=== PATIENT | female | born 1935 | race African-American/Black ===

== ENCOUNTER 2016-08-14 19:17 | Inpatient (IN) | payer MEDICARE, BC ==
[2016-08-14 21:04] LABS: ABSOLUTE BASOPHILS # (AUTO) 0.1 10^3/uL (0.0-0.2); ABSOLUTE EOSINOPHILS # (AUTO) 0.5 10^3/uL (0.0-0.6); ABSOLUTE LYMPHOCYTES (AUTO) 2.1 10^3/uL (0.5-4.7); ABSOLUTE MONOCYTES (AUTO) 0.5 10^3/uL (0.1-1.4); ABSOLUTE NEUT (AUTO) 6.1 10^3/uL (1.7-8.2); BASOPHILS % (AUTO) 0.9 % (0-2); EOSINOPHILS % (AUTO) 5.5 % (0-6); HEMATOCRIT 37.6 % (36.0-47.0); HEMOGLOBIN 12.2 g/dL (12.0-15.5); LYMPHOCYTES % (AUTO) 22.6 % (13-45); MEAN CORPUSCULAR HEMOGLOBIN 28.1 pg (27.0-33.4); MEAN CORPUSCULAR HGB CONC 32.5 g/dL (32.0-36.0); MEAN CORPUSCULAR VOLUME 86 fl (80-97); MONOCYTES % (AUTO) 5.4 % (3-13); PROTHROMBIN TIME 12.7 SEC (11.4-15.4); RED BLOOD COUNT 4.35 10^6/uL (3.72-5.28); RED CELL DISTRIBUTION WIDTH 14.1 % (11.5-14.0); SEGMENTED NEUTROPHILS % (AUTO) 65.6 % (42-78); WHITE BLOOD COUNT 9.3 10^3/uL (4.0-10.5)
[2016-08-14 21:05] LABS: PARTIAL THROMBOPLASTIN TIME 34.7 SEC (23.5-35.8)
[2016-08-14 21:23] LABS: ALANINE AMINOTRANSFERASE 27 U/L (9-52); ALKALINE PHOSPHATASE 105 U/L (38-126); ANION GAP 13 (5-19); ASPARTATE AMINO TRANSFERASE 23 U/L (14-36); BILIRUBIN,TOTAL 0.7 mg/dL (0.2-1.3); BLOOD UREA NITROGEN 29 mg/dL (7-20); CALCIUM 11.2 mg/dL (8.4-10.2); CARBON DIOXIDE 30 mmol/L (22-30); CHLORIDE 103 mmol/L (98-107); CREATINE KINASE 241 U/L (30-135); CREATININE RESULT 1.48 mg/dL (0.52-1.25); GLUCOSE 111 mg/dL (75-110); SODIUM 145.5 mmol/L (137-145); TOTAL PROTEIN 8.3 g/dL (6.3-8.2)
[2016-08-14 21:24] LABS: VENOUS BLOOD BASE EXCESS 3.1 mmol/L; VENOUS BLOOD PCO2 43.9 mmHg (35-63); VENOUS BLOOD PH 7.42 (7.30-7.42)
[2016-08-14 21:35] LABS: CREATINE KINASE MB 3.17 ng/mL (<4.55); TROPONIN I < 0.012 ng/mL
[2016-08-14] MEDS ORDERED: NORMAL SALINE 1000 ML 1,000 ML IV ONE (21:53)
[2016-08-14 22:35] LABS: APPEARANCE,URINE CLEAR; BILIRUBIN,URINE NEGATIVE (NEGATIVE); GLUCOSE, URINE NEGATIVE (NEGATIVE); KETONES,URINE NEGATIVE (NEGATIVE); LEUKOCYTE ESTERASE,URINE NEGATIVE (NEGATIVE); NITRITE,URINE NEGATIVE (NEGATIVE); PROTEIN,URINE 30 mg/dL (NEGATIVE); URINE SPECIFIC GRAVITY 1.009; UROBILINOGEN,URINE NEGATIVE mg/dL (<2.0)
--- NOTE | 2016-08-14 22:38 | ER Document Report ---
ED General - General Chief Complaint: Altered Mental Status Stated Complaint: ALTERED MENTAL STATUS TRAVEL OUTSIDE OF THE [place] IN LAST 30 DAYS: No - HPI Patient complains to provider of: altered mental status Notes: Patient coming in for altered mental status. Family at bedside states around 5: 30 this evening contact patient unable to understand upon arrival to the patient 's house found patient to be altered. Patient was brought to the ER for further evaluation. According to the son last time they saw the patient well was approximately 12 to 12:30 noon time today. States that the past her local jain found the patient a little after 5 to have altered mental status unable to express herself unable to understand. Not describing weakness. Son at bedside states patient has a history of hypertension diabetes. States that the patient's PCP is Dr. Svetlana Naranjo. Son states otherwise no recent illnesses no changes in medication a history of heart attack or stroke in the past. - Related Data Allergies/Adverse Reactions: No Known Allergies Allergy (Verified 08/14/16 20:16) Past Medical History - Social History Smoking Status: Never Smoker Chew tobacco use (# tins/day): No Frequency of alcohol use: None Drug Abuse: None Family History: Reviewed & Not Pertinent Patient has suicidal ideation: No Patient has homicidal ideation: No Renal/ Medical History: Denies: Hx Peritoneal Dialysis Review of Systems - Review of Systems -: Yes ROS unobtainable due to patient's medical condition - Patient on her mental status Physical Exam - Vital signs Vitals: Temp Pulse Resp BP Pulse Ox 98.0 F 73 17 157/79 H 96 08/14/16 20:15 08/14/16 20:15 08/14/16 20:15 08/14/16 20:15 08/14/16 20:15 Interpretation: Normal - General General appearance: Appears well, Alert - HEENT Head: Normocephalic, Atraumatic Eyes: Normal Pupils: PERRL - Respiratory Respiratory status: No respiratory distress Chest status: Nontender Breath sounds: Normal Chest palpation: Normal - Cardiovascular Rhythm: Regular Heart sounds: Normal auscultation Murmur: No - Abdominal Inspection: Normal Distension: No distension Bowel sounds: Normal Tenderness: Nontender Organomegaly: No organomegaly - Back Back: Normal, Nontender - Extremities General upper extremity: Normal inspection, Nontender, Normal color, Normal ROM , Normal temperature General lower extremity: Normal inspection, Nontender, Normal color, Normal ROM , Normal temperature, Normal weight bearing. 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 - Psychological Associated symptoms: Normal affect, Normal mood - Skin Skin Temperature: Warm Skin Moisture: Dry Skin Color: Normal Course - Re-evaluation Re-evalutation: 08/14/16 22:40 CT scan showed subacute infarcts. Evaluation revealed no etiology for the patient to have his infarct. Currently pending urine more likely patient will be admitted to the hospital staff for CVA symptoms Long discussion with family at bedside as the patient last known well was greater than 4 hours prior to arrival here to the ER patient would not be a candidate for any thrombolytic therapy. Also explain as that the patient's last known well greater than 6 hours patient would not be a candidate for thrombectomy - Vital Signs Vital signs: Temp Pulse Resp BP Pulse Ox 98 F 81 17 142/103 H 96 08/14/16 20:16 08/14/16 20:27 08/14/16 20:27 08/14/16 20:27 08/14/16 20:27 - Laboratory Result Diagrams: 08/14/16 20:50 08/14/16 20:50 Laboratory results interpreted by me: 08/14/16 08/14/16 08/14/16 20:50 20:50 22:15 RDW 14.1 H Sodium 145.5 H BUN 29 H Creatinine 1.48 H Est GFR ( Amer) 41 L Est GFR (Non-Af Amer) 34 L Glucose 111 H Calcium 11.2 H Creatine Kinase 241 H Total Protein 8.3 H Urine Protein 30 H Critical Care Note - Critical Care Note Total time excluding time spent on procedures (mins): 40 Comments: Multiple evaluation for patient with stroke symptoms Discharge - Discharge Clinical Impression: Right sided weakness Dysphagia Qualifiers: Dysphagia type: unspecified Qualified Code(s): R13.10 - Dysphagia, unspecified CVA (cerebral vascular accident) Qualifiers: CVA mechanism: unspecified Qualified Code(s): I63.9 - Cerebral infarction, unspecified Condition: Fair Disposition: ADMITTED INPATIENT Admitting Provider: [facility] Unit Admitted: [facility] Referrals: WISAM NELSON MD [Primary Care Provider] - Follow up as needed ED NIH Stroke Scale - NIH Stroke Scale *: 1. NIH scale should be completed with appropriate accompanying assessment tools. *: 2. The NIH should reflect what the patient is capable of doing and should not be coached by the clinician. 1a. Level of Consciousness: 0=Alert;keenly responsive -: 1=Drowsy -: 2=Obtunded -: 3=Coma/unresponsive or reflex to noxious stimuli. 1a. Responses: 0 1b. Orientation Questions: a. What month is it? -: b. How old are you? -: 0=Answers both questions correctly. -: 1=Answers one question correctly or patient is intubated or has orotracheal trauma. -: 2=Answers neither question correctly. 1b. Responses: 1 1c. Response to commands: a. Open and close eyes? -: b. Rate Analyst and release hand? -: Credit is given despite weakness. Demonstration of task is permitted. Substitute command if hands cannot be used. -: 0=Performs both tasks correctly -: 1=Performs one task correctly -: 2=Performs neither task correctly 1c. Responses: 0 2. Gaze: Establish eye contact and instruct patient to "Follow my finger" -: 0=Normal -: 1=Partial gaze palsy. Gaze is abnormal in one or both eyes, but where forced deviation or total gaze paresis is not present. -: 2=Forced deviation or total gaze paresis. 2. Responses: 0 3. Visual Tran: Sees fingers in all four quadrants. -: 0=No visual loss. -: 1=Partial hemianopsia. -: 2=Complete hemianopsia. -: 3=Bilateral hemianopsia (including Cortical blindness) 3. Responses: 0 4. Facial Movement: Instruct patient to: -: a. Show me your teeth -: b. Raise your eyebrows -: c. Close your eyes -: d. Smile -: 0=Normal symmetrical movement -: 1=Minor paralysis (flattened nasolabial fold, asymmetry on smiling). -: 2=Partial paralysis (total or near total paralysis of lower face). -: 3=Complete paralysis of upper and lower face 4. Responses: 1 5. Motor functions (left arm): Alternate sides and extend each arm with palms down (90 degrees if sitting or 45 degrees for supine). -: 0=No drift;limb holds for full 10 seconds. -: 1=Drift; limb holds but drifts down before full 10 seconds, but does not hit bed. -: 2=Some effort against gravity; limb cannot get to or maintain position. -: 3=No effort against gravity; limb falls. -: 4=No movement. -: UN=Amputation, joint fusion, explain in comments. 5. Responses (left arm): 0 5. Motor Functions (right arm): Alternate sides and extend each arm with palms down (90 degrees if sitting or 45 degrees for supine). -: 0=No drift;limb holds for full 10 seconds. -: 1=Drift; limb holds but drifts down before full 10 seconds, but does not hit bed. -: 2=Some effort against gravity; limb cannot get to or maintain position. -: 3=No effort against gravity; limb falls. -: 4=No movement. -: UN=Amputation, joint fusion, explain in comments. 5. Responses (right arm): 1 6. Motor Functions (left leg): With patient lying supine, alternate sides and extend each leg (30 degrees always while supine). -: 0=No drift, leg holds position for full 5 seconds -: 1=Drift; leg falls before full 5 seconds but does not hit bed. -: 2=Some effort against gravity, leg falls to bed but some effort against gravity. -: 3=No effort against gravity, leg falls to bed immediately. -: 4=No movement. -: UN=Amputation, joint fusion; explain in comments. 6. Responses (left leg): 1 6. Motor Functions (right leg): With patient lying supine, alternate sides and extend each leg (30 degrees always while supine). -: 0=No drift, leg holds position for full 5 seconds -: 1=Drift; leg falls before full 5 seconds but does not hit bed. -: 2=Some effort against gravity, leg falls to bed but some effort against gravity. -: 3=No effort against gravity, leg falls to bed immediately. -: 4=No movement. -: UN=Amputation, joint fusion; explain in comments. 6. Responses (right leg): 2 7. Limb Ataxia: With eyes open instruct patient to: -: a. "Touch your finger to your nose". -: b. "Touch your heel to your basilio" -: 0=Absent -: 1=Present in one limb. -: 2=Present in two limbs. -: UN=Amputation or joint fusion; explain in comments. 7. Responses: 0 8. Sensory: Test sensation using pinprick or noxious stimuli. Test as many body parts as possible. -: 0=Normal;no sensory loss -: 1=Mile to moderate sensory loss (patient feels pin prick but is less sharp on affected side). -: 2=Severe or total sensory loss. 8. Responses: 0 9. Best Language: Instruct patient to: -: a. "Describe what you see in this picture." -: b. "Name the items in this picture." -: c. "Read these sentences." -: 0=No aphasia, normal -: 1=Mild to moderate aphasia. -: 2=Severe aphasia -: 3=Mute, global aphasia, no usable speech or auditory comprehension. 9. Responses: 2 10. Articulation, Dysarthia: Instruct patient to: -: "Read these words" or "Repeat these words" -: 0=Normal -: 1=Mild to moderate; patient may slur some words but can be understood without difficulty. -: 2=Severe; patients speech so slurred as to be unintelligible in the absence of dysphasia. -: UN=Intubated or other physical barrier, explain in comments. 10. Responses: 1 11. Extinction or inattention: 0=No abnormality -: 1= Visual, tactile, auditory, spatial, or personal inattention or extinction to bilateral simulation in one or the sensory modalities. -: 2=Profound rolan-inattention or rolan-inattention to more than one modality; does not recognize own hand. 11. Responses: 0 Total Score: 9
[2016-08-14] MEDS ORDERED: ASPIRIN 300 MG SUPP, RECTAL PR ONE (22:49)
[2016-08-14 22:50] LABS: URINE BARBITURATES SCREEN NEGATIVE; URINE METHADONE SCREEN NEGATIVE; URINE PHENCYCLIDINE SCREEN NEGATIVE
[2016-08-15] MEDS ORDERED: IPRATROPIUM/ALBUTEROL 0.5-2.5 MG/3 ML AMPUL NEB PRN (03:13)
[2016-08-15] MEDS ORDERED: 1/2 NORMAL SALINE 1,000 ML IV PRN ×2 (03:15→08:44)
[2016-08-15] MEDS ORDERED: ACETAMINOPHEN 650 MG SUPP.RECT PR PRN (03:23)
[2016-08-15 03:39] LABS: ADD ON TESTING BLD IN LAB ACKNOWLEDGE
[2016-08-15 03:51] LABS: MAGNESIUM 1.6 mg/dL (1.6-2.3)
--- NOTE | 2016-08-15 03:59 | PDOC H&P ---
History of Present Illness Admission Date/PCP: 08/14/16 23:47 WISAM NELSON MD Patient complains of: Altered mental status History of Present Illness: GONZALO WEAVER is a 81 year old female who presents to the emergency room for evaluation of above complaint. Patient has been discussed with emergency room physician who evaluated the patient. Patient has pronounced expressive dysphasia and is able to provide no history whatsoever in terms of acute or chronic events, review of systems, personal habits, family history, etc. No friends or family are present. No Old inpatient records are available for review. Patient also does not seem to understand many basic questions that could be answered with a nod or shake of her head. 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 No obvious weakness. No recent illnesses. No change in medication. No further information available this point in time. Onset of atrial fibrillation in the emergency room. Uncertain if new or old. Only one prior EKG, without evidence of atrial fibrillation or flutter. Laboratory results are listed in [facility] and are reviewed. X-ray summary results are listed below, with full report(s) reviewed. . EKG reviewed. And compared to tracing from December 29 of last year. Social history/personal habits: Uncertain at this point in time. Allergies/adverse reactions NKDA. Home medications uncertain at this point in time. Home medications initially autopopulated into [employer] may not accurately reflect patient's true medications, dosages, and/or frequencies. Order has been entered for staff to contact family, outpatient physician, and/ or pharmacy to more accurately determine medications, dosages, and frequencies and to contact physician when that has been accomplished. REVIEW OF SYSTEMS: See history and present illness. No further information available this point in time. PHYSICAL EXAMINATION: 5 feet 6 inches tall. 70.8 kg. Blood pressure 150/74. Pulse 81 and slightly irregular. Respirations are 20 and unlabored. 96% saturation on room air. Temperature 98.1. Slightly overweight otherwise well-nourished well-developed -[place] female appearing a number of years younger than her stated age. Awake alert and cooperative. Please see comments under history and present illness. Female nurse Gabriella is present. Skin is warm and dry. No grossly obvious evidence of rash in areas of skin examined. No subcutaneous nodules palpated. ENT: Hearing grossly normal to normal conversation. Tongue midline on protrusion pink and slightly moist. Eyes: No scleral icterus. Pupils equal and reactive to light at 4 mm. [place] conjunctivae. Neck is supple and nontender to gentle passive range of motion and palpation. Midline trachea. No palpable thyroid nodule mass enlargement or tenderness. Lymphatic: No palpable cervical or clavicular nodes. Neck and lymphatic exams limited by patient body habitus. Psychiatric: Can't be adequately evaluated due to her current status. Lungs: Auscultation reveals equal breath sounds bilaterally. No use of accessory respiratory muscles. Mild brief inspiratory and expiratory wheezing and faint crackles. Cardiovascular: Heart regular rate and rhythm, without gallop murmur or rub. No carotid or abdominal aortic bruits. No ankle or pedal edema. Faintly palpable dorsalis pedis pulses. Abdomen: soft, slightly obese, nontender with positive bowel sounds. Unable to adequately evaluate abdomen for masses or organomegaly due to body habitus. Extremities: Hands and feet are warm and dry. No calf tenderness to compression. No grossly obvious visual evidence of calf swelling. Gentle manipulation of upper and lower extremities fails to reveal any obvious evidence of injury or instability to involved major joints. Neurologic: Cranial Nerves II through XII exam limited only to tongue protrusion. Does not seem to understand basic requests for remainder of exam.. Light touch can't be evaluated due to her current status.. Patellar reflexes absent. Absent Babinski. Has only scant motor function on the right side, consisting of very faint handgrip, and very faint movement of her toes. Otherwise, no appreciable motor function of right upper or lower extremities. Handgrip 5 over 5 on left. Does not seem to understand request for biceps and triceps function. Dorsiflexion plantar flexion of the left foot 5 over 5 along with flexion of the left thigh at the hip; doesn't seem to understand basic request for extension of the left lower extremity at the hip. Past Medical History Past Medical History: Quite limited information, revealing a history of hypertension and diabetes. No other information at this point in time. Cardiac Medical History: Reports: Hypertension Endocrine Medical History: Reports: Diabetes Mellitus Type 2 - Uncertain if type I and/or type II. Past Surgical History Past Surgical History: Reports: Other - Uncertain at this point in time. Social History Information Source: Emergency Med Personnel, [facility] Records Lives with: Other - Uncertain at this point in time. Smoking Status: Never Smoker - Advance Directive Resuscitation Status: Full Code Surrogate healthcare decision maker:: Uncertain at this point in time. Family History Family History: Reviewed & Not Pertinent Parental Family History Reviewed: No - uncertain at this point in time. Children Family History Reviewed: No Sibling(s) Family History Reviewed.: No Medication/Allergy Home Medications: Amlodipine Besylate [Norvasc 5 mg Tablet] 5 mg PO DAILY 08/15/16 Glipizide [Glipizide Xl] 5 mg PO Q12 08/15/16 Hydrochlorothiazide [Hydrodiuril 25 mg Tablet] 25 mg PO DAILY 08/15/16 Levothyroxine Sodium [Synthroid 0.088 mg Tablet] 0.088 mg PO DAILY 08/15/16 Linagliptin [Tradjenta] 5 mg PO DAILY 08/15/16 Losartan Potassium [Cozaar 100 mg Tablet] 100 mg PO DAILY 08/15/16 Nebivolol HCl [Bystolic 5 mg Tablet] 5 mg PO DAILY 08/15/16 Allergies/Adverse Reactions: codeine Allergy (Unverified 08/15/16 13:42) Penicillins Allergy (Unverified 08/15/16 13:41) phenobarbital Allergy (Unverified 08/15/16 13:43) Physical Exam Vital Signs: Temp Pulse Resp BP Pulse Ox 98 F 77 15 142/110 H 99 08/14/16 20:16 08/15/16 02:00 08/15/16 02:00 08/15/16 02:00 08/15/16 02:00 Results Impressions: Head CT 08/14/16 20:21 IMPRESSION: AREAS OF LOW ATTENUATION INVOLVING THE RIGHT FRONTAL LOBE AND LEFT OCCIPITAL LOBE WHICH MAY REPRESENT SUBACUTE OR CHRONIC INFARCTION. NO DEFINITE CT EVIDENCE HEMORRHAGE OR MASS LESION. CORRELATE WITH NEUROLOGIC DEFICITS AND CONSIDER MRI FOR FURTHER EVALUATION. Chest X-Ray 08/14/16 20:22 IMPRESSION: NO ACUTE RADIOGRAPHIC FINDING IN THE CHEST. NO SIGNIFICANT CHANGE FROM PRIOR STUDY. Assessment & Plan - Diagnosis (1) CVA (cerebral vascular accident) Qualifiers: CVA mechanism: unspecified Is this a current diagnosis for this admission?: YesPlan: Patient will be admitted under CVA/TIA protocol. Multiple imaging procedures, intracranial, vascular, and cardiac. lipid panel. Permissive hypertension. Nothing by mouth; speech therapy consult. Patient is a full code. I have strongly urged patient not to get out of bed, to avoid a fall with injury. Knee high SCDs for DVT prophylaxis, along with subcutaneous heparin. Impression and plans were discussed with patient. Time spent in evaluation and management of patient: 60minutes (2) Expressive dysphasia Is this a current diagnosis for this admission?: Yes (3) Hypernatremia Is this a current diagnosis for this admission?: YesPlan: Half-normal saline, with follow-up chemistry. (4) New onset atrial fibrillation Is this a current diagnosis for this admission?: YesPlan: Serial troponins. Cardiology consult. (5) Right sided weakness Is this a current diagnosis for this admission?: Yes (6) Wheezing Is this a current diagnosis for this admission?: YesPlan: . When necessary DuoNeb's. (7) CKD (chronic kidney disease), stage III Is this a current diagnosis for this admission?: YesPlan: Follow-up chemistry. - Inpatient Certification Based on my medical assessment, after consideration of the patient's comorbidities, presenting symptoms, or acuity I expect that the services needed warrant INPATIENT care.: Yes I certify that my determination is in accordance with my understanding of Medicare's requirements for reasonable and necessary INPATIENT services [42 CFR 412.3e].: Yes Medical Necessity: Need Close Monitoring Due to Risk of Patient Decompensation, Need For IV Fluids, Need For Continuous Telemetry Monitoring, Need for Nebulizer Therapy and Monitoring of Response, Need for Neurological Checks, Risk of Diagnosis Which Will Require Inpatient Eval/Care/Monitoring Post Hospital Care: D/C or Transfer Summary
[2016-08-15 07:47] LABS: ABSOLUTE BASOPHILS # (AUTO) 0.1 10^3/uL (0.0-0.2); ABSOLUTE EOSINOPHILS # (AUTO) 0.7 10^3/uL (0.0-0.6); ABSOLUTE LYMPHOCYTES (AUTO) 1.7 10^3/uL (0.5-4.7); ABSOLUTE MONOCYTES (AUTO) 0.6 10^3/uL (0.1-1.4); ABSOLUTE NEUT (AUTO) 4.8 10^3/uL (1.7-8.2); BASOPHILS % (AUTO) 0.9 % (0-2); EOSINOPHILS % (AUTO) 8.4 % (0-6); LYMPHOCYTES % (AUTO) 22.2 % (13-45); MEAN CORPUSCULAR HEMOGLOBIN 27.7 pg (27.0-33.4); MEAN CORPUSCULAR HGB CONC 32.5 g/dL (32.0-36.0); MEAN CORPUSCULAR VOLUME 85 fl (80-97); MONOCYTES % (AUTO) 7.4 % (3-13); RED BLOOD COUNT 4.33 10^6/uL (3.72-5.28); RED CELL DISTRIBUTION WIDTH 13.9 % (11.5-14.0); SEGMENTED NEUTROPHILS % (AUTO) 61.1 % (42-78); WHITE BLOOD COUNT 7.8 10^3/uL (4.0-10.5)
[2016-08-15 08:03] LABS: ANION GAP 14 (5-19); BLOOD UREA NITROGEN 25 mg/dL (7-20); CALCIUM 10.7 mg/dL (8.4-10.2); CARBON DIOXIDE 25 mmol/L (22-30); CHLORIDE 105 mmol/L (98-107); CHOLESTEROL 203.24 mg/dL (0-200); CREATININE RESULT 1.18 mg/dL (0.52-1.25); Direct HDL 50 mg/dL (>40); GLUCOSE 113 mg/dL (75-110); POTASSIUM 3.9 mmol/L (3.6-5.0); SODIUM 143.8 mmol/L (137-145); TRIGLYCERIDES 103 mg/dL (<150)
[2016-08-15 08:14] LABS: DIRECT LDL 122 mg/dL (<100)
[2016-08-15] MEDS ORDERED: ASPIRIN 300 MG SUPP, RECTAL PR SCH (10:00)
[2016-08-15] MEDS ORDERED: DEXTROSE 40% GEL 15 GM TUBE PO PRN ×2 (10:28)
[2016-08-15] MEDS ORDERED: GLUCAGON,HUMAN RECOMB 1 MG INJ IM PRN (10:28)
[2016-08-15] MEDS ORDERED: INSULIN LISPRO 100 UNIT/ML 3 ML VIAL SUBCUT PRN (10:28)
[2016-08-15] MEDS ORDERED: DEXTROSE 50%-WATER 25 GM/50 ML DISP.SYRIN IV PRN ×2 (10:28)
[2016-08-15] MEDS: HEPARIN SOD (PORCINE) 5,000 UNIT/ML 1 ML SYRINGE SUBCUT SCH ×2 (11:43→21:32)
--- NOTE | 2016-08-15 12:23 | PDOC CONSULTATION ---
Consultation Consult Date: 08/15/16 Attending physician:: LOVELY BOONE Consult reason:: Atrial fibrillation and cerebrovascular accident History of Present Illness Admission Date/PCP: 08/15/16 03:13 WISAM NELSON MD Patient complains of: Cerebrovascular accident History of Present Illness: GONZALO WEAVER is a 81 year old female who presents to the emergency room for evaluation of above complaint. Patient has pronounced expressive dysphasia and is able to provide no history whatsoever in terms of acute or chronic events, review of systems, personal habits, family history, etc. Patient also does not seem to understand many basic questions that could be answered with a nod or shake of her head. Her only intelligible verbal response is an occasional "okay." Approximately 5:30 PM the evening of the , the reimbursement auditor of her local [employer] found the patient to be confused, and unable to express herself or understand basic requests. No obvious weakness. This history was reviewed and confirmed. Patient's son at bedside. There is questionable history of prior stroke. Past Medical History Cardiac Medical History: Reports: Hypertension Endocrine Medical History: Reports: Diabetes Mellitus Type 2 - Uncertain if type I and/or type II. Past Surgical History Past Surgical History: Reports: Other - Uncertain at this point in time. Social History Information Source: Relative Lives with: Other - Uncertain at this point in time. Smoking Status: Never Smoker - Advance Directive Resuscitation Status: Full Code Surrogate healthcare decision maker:: Patient's son Family History Family History: Reviewed & Not Pertinent Parental Family History Reviewed: Yes Children Family History Reviewed: Yes Sibling(s) Family History Reviewed.: Yes - Negative for premature coronary artery disease or sudden cardiac in the family amongst first degree relatives. Medication/Allergy Home Medications: Amlodipine Besylate [Norvasc 5 mg Tablet] 5 mg PO DAILY 08/15/16 Glipizide [Glipizide Xl] 5 mg PO Q12 08/15/16 Hydrochlorothiazide [Hydrodiuril 25 mg Tablet] 25 mg PO DAILY 08/15/16 Levothyroxine Sodium [Synthroid 0.088 mg Tablet] 0.088 mg PO DAILY 08/15/16 Linagliptin [Tradjenta] 5 mg PO DAILY 08/15/16 Losartan Potassium [Cozaar 100 mg Tablet] 100 mg PO DAILY 08/15/16 Nebivolol HCl [Bystolic 5 mg Tablet] 5 mg PO DAILY 08/15/16 Allergies/Adverse Reactions: No Known Allergies Allergy (Verified 08/14/16 20:16) Review of Systems ROS unobtainable: Due to mental status, Other - And presence of significant dysphasia Physical Exam Vital Signs: Temp Pulse Resp BP Pulse Ox 98 F 77 16 130/75 H 96 08/15/16 10:00 08/15/16 05:31 08/15/16 10:00 08/15/16 04:46 08/15/16 10:00 Intake & Output 08/14/16 08/15/16 08/16/16 06:59 06:59 06:59 Intake Total 600 Output Total 1600 Balance -1000 Exam: GENERAL: well-nourished and in no acute distress. Patient is alert but not oriented to place time or person. HEAD: Atraumatic, normocephalic. EYES: Pupils equal round and reactive to light, extraocular movements intact, sclera anicteric, conjunctiva are normal. ENT: TMs normal, nares patent, oropharynx clear without exudates. Moist mucous membranes. No oral ulcerations or bleeding gums noted NECK: supple without lymphadenopathy or JVD. Trachea is central. No cervical or axillary lymphadenopathy noted. Carotids are 2+ LUNGS: Breath sounds bibasilar fine crackles at bases. No significant dullness noted. CHEST: Palpation of chest wall shows no significant chest wall tenderness. 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 Heart rate irregular. ABDOMEN: Soft, no significant tenderness appreciated, normoactive bowel sounds. No guarding, no rebound. No rigidity noted . No masses appreciated. EXTREMITIES: Pedal pulses are 1-2+, no calf tenderness noted, Trace + pedal edema noted. No clubbing or cyanosis. NEUROLOGICAL: Patient is alert but is not able to participate in neurological exam because of patient's current mental status and difficulty in cooperating PSYCH: Patient cannot participate in a neurologic and psych exam because of the patient's current mental status SKIN: No significant ecchymosis, rash, ulcerations or signs of pruritus noted. MUSCULOSKELETAL EXAM: No significant joint swelling noted. Results Laboratory Results: 08/15/16 07:26 08/15/16 07:26 08/15/16 08/15/16 07:26 07:26 WBC 7.8 RBC 4.33 Hgb 12.0 Hct 37.0 MCV 85 MCH 27.7 MCHC 32.5 RDW 13.9 Plt Count 331 Seg Neutrophils % 61.1 Lymphocytes % 22.2 Monocytes % 7.4 Eosinophils % 8.4 H Basophils % 0.9 Absolute Neutrophils 4.8 Absolute Lymphocytes 1.7 Absolute Monocytes 0.6 Absolute Eosinophils 0.7 H Absolute Basophils 0.1 Sodium 143.8 Potassium 3.9 Chloride 105 Carbon Dioxide 25 Anion Gap 14 BUN 25 H Creatinine 1.18 Est GFR ( Amer) 53 L Est GFR (Non-Af Amer) 44 L Glucose 113 H Calcium 10.7 H Triglycerides 103 Cholesterol 203.24 H LDL Cholesterol Direct 122 H VLDL Cholesterol 21.0 HDL Cholesterol 50 08/15/16 08/15/16 03:23 08:40 Troponin I < 0.012 < 0.012 EKG Comments: Shows atrial flutter fibrillation with controlled ventricular response. No acute ST-T wave changes noted Impressions: Head CT 08/14/16 20:21 IMPRESSION: AREAS OF LOW ATTENUATION INVOLVING THE RIGHT FRONTAL LOBE AND LEFT OCCIPITAL LOBE WHICH MAY REPRESENT SUBACUTE OR CHRONIC INFARCTION. NO DEFINITE CT EVIDENCE HEMORRHAGE OR MASS LESION. CORRELATE WITH NEUROLOGIC DEFICITS AND CONSIDER MRI FOR FURTHER EVALUATION. Chest X-Ray 08/14/16 20:22 IMPRESSION: NO ACUTE RADIOGRAPHIC FINDING IN THE CHEST. NO SIGNIFICANT CHANGE FROM PRIOR STUDY. Assessment & Plan - Diagnosis (1) CVA (cerebral vascular accident) Qualifiers: CVA mechanism: unspecified Qualified Code(s): I63.9 - Cerebral infarction, unspecified Is this a current diagnosis for this admission?: Yes (2) Atrial fibrillation Qualifiers: Atrial fibrillation type: unspecified Qualified Code(s): I48.91 - Unspecified atrial fibrillation Is this a current diagnosis for this admission?: Yes (3) Diabetes Qualifiers: Diabetes mellitus type: type 2 Diabetes mellitus complication status: with unspecified complications Diabetes mellitus intermediate manager insulin use: without assisted use Qualified Code(s): E11.8 - Type 2 diabetes mellitus with unspecified complications (4) Hypertension Qualifiers: Hypertension type: essential hypertension Qualified Code(s): I10 - Essential (primary) hypertension Is this a current diagnosis for this admission?: Yes (5) Dyslipidemia Is this a current diagnosis for this admission?: Yes - Notes Notes: Patient presentation is consistent with acute cerebrovascular accident. This is most likely embolic. Symptom complex and physical exams suggest significant stroke. Patient will benefit from chronic anticoagulation but may have to wait at least 48-72 hours for chronic anticoagulation to start. Atrial fibrillation: This is noted on presentation. Exact duration not clear. Rate seems well controlled. Patient would benefit from chronic anticoagulation. Diabetes:Recommend good control of blood sugar. However should avoid any hypoglycemia. Patient being expertly managed by primary care M.D. Hypertension: At this point will aim blood pressure between 140-1 60 mmHg systolic. Avoid any hypotension or severe hypertension. Dyslipidemia: We'll start patient on antilipid therapy. - Time Time Spent: 30 to 50 Minutes - CODE STATUS was discussed, patient remains full code. Surrogate decision-maker patient's son. Multiple medical problems were addressed.More than 50% of the time spent coordinating care, discussing management plans with involved caregivers. Management plans discussed with involved personnels. Medical decision making was of moderate complexity. Medications reviewed and adjusted accordingly: Yes
--- NOTE | 2016-08-15 13:03 | XCELERA REPORT ---
[address] [address] Transthoracic Echocardiogram Report Name: GONZALO WEAVER Age: 81 yrs Gender: Female : 1935 Patient Status: Inpatient Patient Location: \S\09\S\A Study Date: 08/15/2016 08:56 AM Height: 66 in Weight: 156 lb BSA: 1.8 m2 Procedure: A complete two-dimensional transthoracic echocardiogram was performed (2D, M-mode, spectral and color flow Doppler). The study was technically adequate with some images being suboptimal in quality. Reason For Study: cva Ordering Physician: LOVEYL BOONE Performed By: Edilia Baker Interpretation Summary The left ventricular ejection fraction is normal. Doppler measurements suggest pseudonormalized left ventricular relaxation, which is associated with grade II/IV or mild to moderate diastolic dysfunction There is mild concentric left ventricular hypertrophy. The left ventricle is grossly normal size. Wall motion cannot be accurately commented on, but no definite regional wall motion abnormalities noted. The right ventricle is mildly dilated. The right ventricular systolic function is normal. The left atrium is mildly dilated. The right atrium is normal in size There is a trace to mild amount of mitral regurgitation There is no mitral valve stenosis. No aortic regurgitation is present. There is no aortic valve stenosis There is a trace or physiologic amount of tricuspid regurgitation Tricuspid regurgitation jet envelope not well defined to measure RV systolic pressure accurately. The aortic root is not well visualized but is probably normal size. The inferior vena cava appeared small and collapsed with respiration (RAP 0-5 mmHg) There is no pericardial effusion. May consider mobile cardiac telemetry monitoring (MCT) for ruling out transient AFIB. Consider SMITHA if clinically indicated. MMode/2D Measurements \T\ Calculations RVDd: 2.9 cm LVIDd: 4.6 cm FS: 42.7 % Ao root diam: 3.0 cm IVSd: 0.96 cm LVIDs: 2.6 cm EDV(Teich): 95.2 ml LVPWd: 1.0 cm ESV(Teich): 24.8 ml Ao root area: 7.0 cm2 EF(Teich): 73.9 % LA dimension: 3.2 cm Doppler Measurements \T\ Calculations MV E max radha: MV P1/2t max radha: Ao V2 max: LV V1 max P.1 cm/sec 107.1 cm/sec 135.1 cm/sec 3.9 mmHg MV A max radha: MV P1/2t: 51.8 msec Ao max PG: LV V1 max: 46.9 cm/sec 7.3 mmHg 99.2 cm/sec MV E/A: 2.3 MVA(P1/2t): 4.2 cm2 MV dec slope: 605.6 cm/sec2 MV dec time: 0.17 sec PA V2 max: TR max radha: 72.1 cm/sec 253.1 cm/sec PA max P.1 mmHgTR max P.6 mmHg Left Ventricle The left ventricle is grossly normal size. There is mild concentric left ventricular hypertrophy. The left ventricular ejection fraction is normal. Doppler measurements suggest pseudonormalized left ventricular relaxation, which is associated with grade II/IV or mild to moderate diastolic dysfunction. Wall motion cannot be accurately commented on, but no definite regional wall motion abnormalities noted. Right Ventricle The right ventricle is mildly dilated. There is normal right ventricular wall thickness. The right ventricular systolic function is normal. Atria The right atrium is normal in size. The left atrium is mildly dilated. Interarterial septum not well visualized and not well dopplered. Cannot comment on ASD/PFO presence. Mitral Valve The mitral valve is grossly normal. There is no mitral valve stenosis. There is a trace to mild amount of mitral regurgitation. Aortic Valve The aortic valve is grossly normal. There is no aortic valve stenosis. No aortic regurgitation is present. Tricuspid Valve The tricuspid valve is not well visualized, but is grossly normal. There is no tricuspid stenosis. There is a trace or physiologic amount of tricuspid regurgitation. Tricuspid regurgitation jet envelope not well defined to measure RV systolic pressure accurately. Pulmonic Valve The pulmonic valve is not well visualized. Great Vessels The aortic root is not well visualized but is probably normal size. The inferior vena cava appeared small and collapsed with respiration (RAP 0-5 mmHg). Effusions There is no pericardial effusion. Incidental Findings May consider mobile cardiac telemetry monitoring (MCT) for ruling out transient AFIB. Consider SMITHA if clinically indicated. No definite cardiac source of CVA/TIA noted on this particular trans-thoracic study. : LOVELY BOONE > Samuel Mcgrath
--- NOTE | 2016-08-15 14:58 | EKG REPORT ---
SEVERITY:- ABNORMAL ECG - SINUS RHYTHM ATRIAL PREMATURE COMPLEX LEFT ANTERIOR FASCICULAR BLOCK LVH WITH SECONDARY REPOLARIZATION ABNORMALITY : Confirmed by: Trinidad De La Rosa MD 15-Aug-2016 14:57:57
--- NOTE | 2016-08-15 14:58 | EKG REPORT ---
SEVERITY:- ABNORMAL ECG - ATRIAL FIBRILLATION LEFT ANTERIOR FASCICULAR BLOCK PROBABLE LVH WITH SECONDARY REPOL ABNRM : Confirmed by: Trinidad De La Rosa MD 15-Aug-2016 14:57:54
[2016-08-16] MEDS ORDERED: INSULIN LISPRO 100 UNIT/ML 3 ML VIAL SUBCUT PRN (03:00)
[2016-08-16 06:21] LABS: ANION GAP 13 (5-19); BLOOD UREA NITROGEN 23 mg/dL (7-20); CALCIUM 9.5 mg/dL (8.4-10.2); CARBON DIOXIDE 24 mmol/L (22-30); CHLORIDE 104 mmol/L (98-107); CREATININE RESULT 1.31 mg/dL (0.52-1.25); GLUCOSE 97 mg/dL (75-110); POTASSIUM 3.7 mmol/L (3.6-5.0); SODIUM 140.5 mmol/L (137-145)
--- NOTE | 2016-08-16 09:27 | PDOC PROGRESS REPORT ---
Subjective Progress Note for:: 08/16/16 Subjective:: Patient reportedly doing well. Mild slurring of speech but it is swollen. Swallowing is good and patient unable to tolerate oral intake. Able to ambulate with assistance. There is right-sided weakness. Patient denies any shortness of breath or coughing or choking sensation. No chills or fever. Patient reportedly converted back to sinus rhythm. Physical Exam Vital Signs: Temp Pulse Resp BP Pulse Ox 98.1 F 73 18 123/68 100 08/16/16 07:23 08/16/16 07:23 08/16/16 07:23 08/16/16 07:23 08/16/16 07:23 Intake & Output 08/15/16 08/16/16 08/17/16 06:59 06:59 06:59 Intake Total 600 1302 Output Total 1600 2350 Balance -1000 -1048 Weight 69.3 kg General appearance: PRESENT: no acute distress, cooperative, obese Head exam: PRESENT: normocephalic Eye exam: PRESENT: EOMI Mouth exam: PRESENT: moist, neck supple Neck exam: ABSENT: carotid bruit, JVD Respiratory exam: PRESENT: clear to auscultation emily, unlabored. ABSENT: rhonchi, wheezes Cardiovascular exam: PRESENT: RRR. ABSENT: gallop GI/Abdominal exam: PRESENT: hypoactive bowel sounds, soft. ABSENT: distended, tenderness Extremities exam: PRESENT: other - Trace pretibial edema Neurological exam: PRESENT: alert, awake, oriented to situation Psychiatric exam: PRESENT: normal mood Skin exam: PRESENT: dry, warm. ABSENT: cyanosis Results Laboratory Results: 08/15/16 07:26 08/16/16 05:04 08/16/16 05:04 Sodium 140.5 Potassium 3.7 Chloride 104 Carbon Dioxide 24 Anion Gap 13 BUN 23 H Creatinine 1.31 H Est GFR ( Amer) 47 L Est GFR (Non-Af Amer) 39 L Glucose 97 Calcium 9.5 08/15/16 08/15/16 03:23 08:40 Troponin I < 0.012 < 0.012 Impressions: Head CT 08/14/16 20:21 IMPRESSION: AREAS OF LOW ATTENUATION INVOLVING THE RIGHT FRONTAL LOBE AND LEFT OCCIPITAL LOBE WHICH MAY REPRESENT SUBACUTE OR CHRONIC INFARCTION. NO DEFINITE CT EVIDENCE HEMORRHAGE OR MASS LESION. CORRELATE WITH NEUROLOGIC DEFICITS AND CONSIDER MRI FOR FURTHER EVALUATION. Chest X-Ray 08/14/16 20:22 IMPRESSION: NO ACUTE RADIOGRAPHIC FINDING IN THE CHEST. NO SIGNIFICANT CHANGE FROM PRIOR STUDY. Head MRI 08/15/16 00:00 IMPRESSION: Positive for acute or sub-acute infarction in the posterior portion of the left temporal lobe.CHRONIC MICRO-VASCULAR ISCHEMIC CHANGES, more focal in the left occipital and right frontal lobes as described on the recent CT exam. Brain MRI with MRA 08/15/16 03:28 IMPRESSION: Focal diminished -occluded flow void in the posterior left temporal lobe MCA subsegmental branches correlating with the region of restricted diffusion consistent with acute infarct in this area. Carotid Doppler Study 08/15/16 03:29 IMPRESSION: NO HEMODYNAMICALLY SIGNIFICANT STENOSIS. Assessment & Plan - Diagnosis (1) CVA (cerebral vascular accident) Qualifiers: CVA mechanism: unspecified Qualified Code(s): I63.9 - Cerebral infarction, unspecified Is this a current diagnosis for this admission?: Yes (2) Atrial fibrillation Qualifiers: Atrial fibrillation type: unspecified Qualified Code(s): I48.91 - Unspecified atrial fibrillation Is this a current diagnosis for this admission?: Yes (3) Diabetes Qualifiers: Diabetes mellitus type: type 2 Diabetes mellitus complication status: with unspecified complications Diabetes mellitus rat exterminator insulin use: without chcf use Qualified Code(s): E11.8 - Type 2 diabetes mellitus with unspecified complications; Z79.4 - medical terminologist (current) use of insulin Is this a current diagnosis for this admission?: Yes (4) Dyslipidemia Is this a current diagnosis for this admission?: Yes (5) Hypercalcemia Is this a current diagnosis for this admission?: Yes (6) Hypernatremia Is this a current diagnosis for this admission?: Yes (7) Hypertension Qualifiers: Hypertension type: essential hypertension Qualified Code(s): I10 - Essential (primary) hypertension Is this a current diagnosis for this admission?: Yes (8) CKD (chronic kidney disease), stage III Is this a current diagnosis for this admission?: Yes (9) Hypothyroidism Qualifiers: Hypothyroidism type: unspecified Qualified Code(s): E03.9 - Hypothyroidism, unspecified Is this a current diagnosis for this admission?: Yes - Time Time Spent with patient: 25-34 minutes - Plan Summary Plan Summary: Continue Physical therapy. Consult discharge plan or for subacute rehabilitation. We will switch her medications to oral. We will begin Lipitor. Continue to hold antihypertensive medications. Consider eliquis in 48 -72 hours. Continue antiplatelet therapy. Continue supportive care. Patient did fair with swallowing evaluation, and physical therapy. Appreciate cardiology input and help. Calcium level is now normal. IV fluids to KVO. Resume Synthroid.
[2016-08-16] MEDS: HEPARIN SOD (PORCINE) 5,000 UNIT/ML 1 ML SYRINGE SUBCUT SCH ×2 (09:58→21:24)
[2016-08-16] MEDS: ASPIRIN 325 MG TABLET PO SCH (10:00)
[2016-08-16] MEDS: LEVOTHYROXINE SODIUM 0.088 MG TABLET PO SCH (10:00)
[2016-08-16] MEDS: 1/2 NORMAL SALINE 1,000 ML IV PRN (15:57)
--- NOTE | 2016-08-16 19:50 | PDOC PROGRESS REPORT ---
Subjective Progress Note for:: 08/16/16 Subjective:: Patient noted to be somewhat better today. She is more alert. She does follow simple commands. On questioning she denied any chest pains or shortness of breath. She is still aphasic with significant dysphasia. Patient's son in the room. Patient in atrial flutter fibrillation. Physical Exam Vital Signs: Temp Pulse Resp BP Pulse Ox 98.6 F 68 14 142/73 H 95 08/16/16 15:15 08/16/16 16:00 08/16/16 16:00 08/16/16 16:00 08/16/16 16:00 Intake & Output 08/15/16 08/16/16 08/17/16 06:59 06:59 06:59 Intake Total 600 1302 1291 Output Total 1600 2350 1100 Balance -1000 -1048 191 Weight 69.3 kg Exam: GENERAL: well-nourished and in no acute distress. Patient is alert. Orientation cannot be checked because of significant dysphasia. HEAD: Atraumatic, normocephalic. EYES: Pupils equal round and reactive to light, extraocular movements intact, sclera anicteric, conjunctiva are normal. ENT: TMs normal, nares patent, oropharynx clear without exudates. Moist mucous membranes. No oral ulcerations or bleeding gums noted NECK: supple without lymphadenopathy. Trachea is central. No cervical or axillary lymphadenopathy noted. Carotids are 2+, JVD WNL LUNGS: Respiration seems nonlabored, no significant accessory muscle action noted. Breath sounds clear to auscultation bilaterally and equal. No wheezes rales or rhonchi. No significant dullness noted on percussion. CHEST: Palpation of the chest wall shows no significant chest wall tenderness or abnormalities. 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 ABDOMEN: Soft, no significant tenderness appreciated, normoactive bowel sounds. No guarding, no rebound. No rigidity noted . No masses appreciated. EXTREMITIES: Pedal pulses are 1-2+, no calf tenderness noted. No clubbing or cyanosis.trace to 1+ pedal edema noted NEUROLOGICAL: Focused neurological exam showed generalized weakness. Markedly dysphasic speech, patient could not participate in a full exam PSYCH: This could not be checked because of significant dysphasia SKIN: No significant ecchymosis, rash, ulcerations or signs of pruritus noted. MUSCULOSKELETAL EXAM: No significant joint swelling noted. Results Laboratory Results: 08/15/16 07:26 08/16/16 05:04 08/16/16 05:04 Sodium 140.5 Potassium 3.7 Chloride 104 Carbon Dioxide 24 Anion Gap 13 BUN 23 H Creatinine 1.31 H Est GFR ( Amer) 47 L Est GFR (Non-Af Amer) 39 L Glucose 97 Calcium 9.5 08/15/16 08/15/16 03:23 08:40 Troponin I < 0.012 < 0.012 Impressions: Head CT 08/14/16 20:21 IMPRESSION: AREAS OF LOW ATTENUATION INVOLVING THE RIGHT FRONTAL LOBE AND LEFT OCCIPITAL LOBE WHICH MAY REPRESENT SUBACUTE OR CHRONIC INFARCTION. NO DEFINITE CT EVIDENCE HEMORRHAGE OR MASS LESION. CORRELATE WITH NEUROLOGIC DEFICITS AND CONSIDER MRI FOR FURTHER EVALUATION. Chest X-Ray 08/14/16 20:22 IMPRESSION: NO ACUTE RADIOGRAPHIC FINDING IN THE CHEST. NO SIGNIFICANT CHANGE FROM PRIOR STUDY. Head MRI 08/15/16 00:00 IMPRESSION: Positive for acute or sub-acute infarction in the posterior portion of the left temporal lobe.CHRONIC MICRO-VASCULAR ISCHEMIC CHANGES, more focal in the left occipital and right frontal lobes as described on the recent CT exam. Brain MRI with MRA 08/15/16 03:28 IMPRESSION: Focal diminished -occluded flow void in the posterior left temporal lobe MCA subsegmental branches correlating with the region of restricted diffusion consistent with acute infarct in this area. Carotid Doppler Study 08/15/16 03:29 IMPRESSION: NO HEMODYNAMICALLY SIGNIFICANT STENOSIS. Assessment & Plan - Diagnosis (1) CVA (cerebral vascular accident) Qualifiers: CVA mechanism: unspecified Qualified Code(s): I63.9 - Cerebral infarction, unspecified Is this a current diagnosis for this admission?: Yes (2) Atrial fibrillation Qualifiers: Atrial fibrillation type: unspecified Qualified Code(s): I48.91 - Unspecified atrial fibrillation Is this a current diagnosis for this admission?: Yes (3) Diabetes Qualifiers: Diabetes mellitus type: type 2 Diabetes mellitus complication status: with unspecified complications Diabetes mellitus mcfp insulin use: without mcfp use Qualified Code(s): E11.8 - Type 2 diabetes mellitus with unspecified complications; Z79.4 - penitentiary (current) use of insulin Is this a current diagnosis for this admission?: Yes (4) Hypertension Qualifiers: Hypertension type: essential hypertension Qualified Code(s): I10 - Essential (primary) hypertension Is this a current diagnosis for this admission?: Yes (5) Dyslipidemia Is this a current diagnosis for this admission?: Yes - Notes Notes: Cerebrovascular accident: [place] to be cardioembolic. Patient has atrial flutter fibrillation. Would recommend repeating a CT scan of the head and if no evidence of bleed, then consider starting patient on ELIQUIS or other new or anticoagulants. Heart rate seems well controlled. If oral anticoagulants are started, would recommend stopping aspirin. Atrial fibrillation: Currently stable rate well controlled. Diabetes: Recommend good control of blood sugar. However should avoid any hypoglycemia. Patient being expertly managed by primary care MLes. Hypertension: We will avoid aggressive control at this point but long-term blood pressure goal is less than 140 mmHg. Dyslipidemia: Patient started on antilipid therapy. Agree with other management plans as outlined by the hospitalist. - Time Time with patient: 15-25 minutes - CODE STATUS was discussed, patient remains full code. Surrogate decision-maker unchanged. Multiple medical problems were addressed.More than 50% of the time spent coordinating care, discussing management plans with involved caregivers. Management plans discussed with involved personnels. Medical decision making was of moderate complexity.
[2016-08-16] MEDS: ATORVASTATIN CALCIUM 40 MG TABLET PO SCH (21:24)
[2016-08-17] MEDS: LEVOTHYROXINE SODIUM 0.088 MG TABLET PO SCH (06:04)
[2016-08-17] MEDS: HEPARIN SOD (PORCINE) 5,000 UNIT/ML 1 ML SYRINGE SUBCUT SCH ×2 (10:16→21:38)
[2016-08-17] MEDS: ASPIRIN 325 MG TABLET PO SCH (10:16)
--- NOTE | 2016-08-17 10:44 | PDOC PROGRESS REPORT ---
Subjective Progress Note for:: 08/17/16 Subjective:: Patient noted to be significantly. Patient still has. She was noted to ambulate with her walker in the hallway with physical therapist. On questioning she denied any chest pains or shortness of breath. She is still aphasic with significant dysphasia. Patient's son in the room. Patient in atrial flutter fibrillation. Physical Exam Vital Signs: Temp Pulse Resp BP Pulse Ox 98.5 F 71 18 129/64 H 100 08/17/16 08:28 08/17/16 08:28 08/17/16 08:28 08/17/16 08:28 08/17/16 08:28 Intake & Output 08/16/16 08/17/16 08/18/16 06:59 06:59 06:59 Intake Total 1302 2371 Output Total 2350 1800 Balance -1048 571 Weight 69.3 kg 69 kg Exam: GENERAL: well-nourished and in no acute distress. Patient is alert. Orientation cannot be checked because of significant dysphasia. HEAD: Atraumatic, normocephalic. EYES: Pupils equal round and reactive to light, extraocular movements intact, sclera anicteric, conjunctiva are normal. ENT: TMs normal, nares patent, oropharynx clear without exudates. Moist mucous membranes. No oral ulcerations or bleeding gums noted NECK: supple without lymphadenopathy. Trachea is central. No cervical or axillary lymphadenopathy noted. Carotids are 2+, JVD WNL LUNGS: Respiration seems nonlabored, no significant accessory muscle action noted. Breath sounds clear to auscultation bilaterally and equal. No wheezes rales or rhonchi. No significant dullness noted on percussion. CHEST: Palpation of the chest wall shows no significant chest wall tenderness or abnormalities. 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 ABDOMEN: Soft, no significant tenderness appreciated, normoactive bowel sounds. No guarding, no rebound. No rigidity noted . No masses appreciated. EXTREMITIES: Pedal pulses are 1-2+, no calf tenderness noted. No clubbing or cyanosis.trace to 1+ pedal edema noted NEUROLOGICAL: Focused neurological exam showed improvement in generalized weakness. Markedly dysphasic speech, patient could not participate in a full exam, but patient noted to be walking in the hallway with walker with physical therapist behind her. PSYCH: This could not be checked because of significant dysphasia SKIN: No significant ecchymosis, rash, ulcerations or signs of pruritus noted. MUSCULOSKELETAL EXAM: No significant joint swelling noted. Results Laboratory Results: 08/15/16 07:26 08/16/16 05:04 08/15/16 08/15/16 03:23 08:40 Troponin I < 0.012 < 0.012 Impressions: Head CT 08/14/16 20:21 IMPRESSION: AREAS OF LOW ATTENUATION INVOLVING THE RIGHT FRONTAL LOBE AND LEFT OCCIPITAL LOBE WHICH MAY REPRESENT SUBACUTE OR CHRONIC INFARCTION. NO DEFINITE CT EVIDENCE HEMORRHAGE OR MASS LESION. CORRELATE WITH NEUROLOGIC DEFICITS AND CONSIDER MRI FOR FURTHER EVALUATION. Chest X-Ray 08/14/16 20:22 IMPRESSION: NO ACUTE RADIOGRAPHIC FINDING IN THE CHEST. NO SIGNIFICANT CHANGE FROM PRIOR STUDY. Head MRI 08/15/16 00:00 IMPRESSION: Positive for acute or sub-acute infarction in the posterior portion of the left temporal lobe.CHRONIC MICRO-VASCULAR ISCHEMIC CHANGES, more focal in the left occipital and right frontal lobes as described on the recent CT exam. Brain MRI with MRA 08/15/16 03:28 IMPRESSION: Focal diminished -occluded flow void in the posterior left temporal lobe MCA subsegmental branches correlating with the region of restricted diffusion consistent with acute infarct in this area. Carotid Doppler Study 08/15/16 03:29 IMPRESSION: NO HEMODYNAMICALLY SIGNIFICANT STENOSIS. Assessment & Plan - Diagnosis (1) CVA (cerebral vascular accident) Qualifiers: Qualified Code(s): I63.9 - Cerebral infarction, unspecified Is this a current diagnosis for this admission?: Yes (2) Atrial fibrillation Qualifiers: Qualified Code(s): I48.91 - Unspecified atrial fibrillation Is this a current diagnosis for this admission?: Yes (3) Diabetes Qualifiers: Qualified Code(s): E11.8 - Type 2 diabetes mellitus with unspecified complications; Z79.4 - [facility] (current) use of insulin Is this a current diagnosis for this admission?: Yes (4) Hypertension Qualifiers: Qualified Code(s): I10 - Essential (primary) hypertension Is this a current diagnosis for this admission?: Yes (5) Dyslipidemia Is this a current diagnosis for this admission?: Yes - Notes Notes: Cerebrovascular accident: [place] to be cardioembolic. Patient has atrial flutter fibrillation. Would recommend repeating a CT scan of the head and if no evidence of bleed, then consider starting patient on ELIQUIS or other new or anticoagulants. Heart rate seems well controlled. If oral anticoagulants are started, would recommend stopping aspirin. Atrial fibrillation: Currently stable rate well controlled. Discussed starting oral anticoagulation with the hospitalist. Diabetes: Recommend good control of blood sugar. However should avoid any hypoglycemia. Patient being expertly managed by primary care M.D. Hypertension: We will avoid aggressive control at this point but long-term blood pressure goal is less than 140 mmHg. Dyslipidemia: Patient started on antilipid therapy. Agree with other management plans as outlined by the hospitalist. - Time Time with patient: 15-25 minutes - CODE STATUS was discussed, patient remains full code. Surrogate decision-maker unchanged. Multiple medical problems were addressed.More than 50% of the time spent coordinating care, discussing management plans with involved caregivers. Management plans discussed with involved personnels. Medical decision making was of moderate complexity.
--- NOTE | 2016-08-17 10:44 | PDOC PROGRESS REPORT ---
Subjective Progress Note for:: 08/17/16 Subjective:: Patient reportedly doing well and stable. Mild slurring of speech. Swallowing is good and patient able to tolerate oral intake. Able to ambulate with assistance. There is right-sided weakness. Patient denies any shortness of breath or coughing or choking sensation. No chills or fever. Patient reportedly converted back to sinus rhythm. No reported agitation or new weakness. Physical Exam Vital Signs: Temp Pulse Resp BP Pulse Ox 98.5 F 71 18 129/64 H 100 08/17/16 08:28 08/17/16 08:28 08/17/16 08:28 08/17/16 08:28 08/17/16 08:28 Intake & Output 08/16/16 08/17/16 08/18/16 06:59 06:59 06:59 Intake Total 1302 2371 Output Total 2350 1800 Balance -1048 571 Weight 69.3 kg 69 kg General appearance: PRESENT: no acute distress, obese Head exam: PRESENT: normocephalic Eye exam: PRESENT: conjunctiva pink Mouth exam: PRESENT: moist, neck supple Neck exam: ABSENT: JVD Respiratory exam: PRESENT: clear to auscultation emily Cardiovascular exam: PRESENT: systolic murmur - Aortic area. ABSENT: gallop GI/Abdominal exam: PRESENT: soft. ABSENT: distended, tenderness Extremities exam: PRESENT: other - Trace pretibial edema Neurological exam: PRESENT: alert, awake, oriented to situation Skin exam: PRESENT: dry, warm. ABSENT: cyanosis Results Laboratory Results: 08/15/16 07:26 08/16/16 05:04 08/15/16 08/15/16 03:23 08:40 Troponin I < 0.012 < 0.012 Impressions: Head CT 08/14/16 20:21 IMPRESSION: AREAS OF LOW ATTENUATION INVOLVING THE RIGHT FRONTAL LOBE AND LEFT OCCIPITAL LOBE WHICH MAY REPRESENT SUBACUTE OR CHRONIC INFARCTION. NO DEFINITE CT EVIDENCE HEMORRHAGE OR MASS LESION. CORRELATE WITH NEUROLOGIC DEFICITS AND CONSIDER MRI FOR FURTHER EVALUATION. Chest X-Ray 08/14/16 20:22 IMPRESSION: NO ACUTE RADIOGRAPHIC FINDING IN THE CHEST. NO SIGNIFICANT CHANGE FROM PRIOR STUDY. Head MRI 08/15/16 00:00 IMPRESSION: Positive for acute or sub-acute infarction in the posterior portion of the left temporal lobe.CHRONIC MICRO-VASCULAR ISCHEMIC CHANGES, more focal in the left occipital and right frontal lobes as described on the recent CT exam. Brain MRI with MRA 08/15/16 03:28 IMPRESSION: Focal diminished -occluded flow void in the posterior left temporal lobe MCA subsegmental branches correlating with the region of restricted diffusion consistent with acute infarct in this area. Carotid Doppler Study 08/15/16 03:29 IMPRESSION: NO HEMODYNAMICALLY SIGNIFICANT STENOSIS. Assessment & Plan - Diagnosis (1) CVA (cerebral vascular accident) Qualifiers: CVA mechanism: unspecified Qualified Code(s): I63.9 - Cerebral infarction, unspecified Is this a current diagnosis for this admission?: Yes (2) Atrial fibrillation Qualifiers: Atrial fibrillation type: unspecified Qualified Code(s): I48.91 - Unspecified atrial fibrillation Is this a current diagnosis for this admission?: Yes (3) Diabetes Qualifiers: Diabetes mellitus type: type 2 Diabetes mellitus complication status: with unspecified complications Diabetes mellitus terminologist insulin use: without fpc use Qualified Code(s): E11.8 - Type 2 diabetes mellitus with unspecified complications; Z79.4 - terminologist (current) use of insulin Is this a current diagnosis for this admission?: Yes (4) Dyslipidemia Is this a current diagnosis for this admission?: Yes (5) Hypercalcemia Is this a current diagnosis for this admission?: Yes (6) Hypernatremia Is this a current diagnosis for this admission?: Yes (7) Hypertension Qualifiers: Hypertension type: essential hypertension Qualified Code(s): I10 - Essential (primary) hypertension Is this a current diagnosis for this admission?: Yes (8) CKD (chronic kidney disease), stage III Is this a current diagnosis for this admission?: Yes (9) Hypothyroidism Qualifiers: Hypothyroidism type: unspecified Qualified Code(s): E03.9 - Hypothyroidism, unspecified Is this a current diagnosis for this admission?: Yes - Time Time Spent with patient: 25-34 minutes - Plan Summary Plan Summary: Continue physical therapy. Refer to the logistics planner for subacute rehabilitation. We will repeat CT scan of the head today to see there is any hemorrhagic transformation. If stable , start eliquis. Discontinue aspirin when eliquis started. Case discussed with cardiology service. Continue supportive care.
[2016-08-17] MEDS: ATORVASTATIN CALCIUM 40 MG TABLET PO SCH (21:38)
[2016-08-17] MEDS: ACETAMINOPHEN 325 MG TABLET PO PRN (23:22)
[2016-08-18] MEDS: LEVOTHYROXINE SODIUM 0.088 MG TABLET PO SCH (06:35)
--- NOTE | 2016-08-18 09:23 | PDOC PROGRESS REPORT ---
Subjective Progress Note for:: 08/18/16 Subjective:: Patient reportedly doing well and stable. Mild slurring of speech unchanged. Swallowing remains good good and patient able to tolerate oral intake. Able to ambulate with assistance. There is right-sided weakness. Patient denies any shortness of breath or coughing or choking sensation. No chills or fever. Patient reportedly converted back to sinus rhythm. No reported agitation or new weakness. Physical Exam Vital Signs: Temp Pulse Resp BP Pulse Ox 98.3 F 100 16 141/84 H 98 08/18/16 08:03 08/18/16 08:03 08/18/16 08:03 08/18/16 08:03 08/18/16 08:03 Intake & Output 08/17/16 08/18/16 08/19/16 06:59 06:59 06:59 Intake Total 2371 1694 Output Total 1800 600 Balance 571 1094 Weight 69 kg 69.1 kg General appearance: PRESENT: no acute distress, cooperative, obese Head exam: PRESENT: normocephalic Eye exam: PRESENT: conjunctiva pink Mouth exam: PRESENT: moist, neck supple Neck exam: ABSENT: JVD Respiratory exam: PRESENT: clear to auscultation emily. ABSENT: rhonchi, wheezes Cardiovascular exam: PRESENT: RRR. ABSENT: gallop GI/Abdominal exam: PRESENT: soft. ABSENT: distended, tenderness Extremities exam: ABSENT: pedal edema Neurological exam: PRESENT: alert, awake, oriented to situation Skin exam: PRESENT: dry, warm. ABSENT: cyanosis Results Laboratory Results: 08/15/16 07:26 08/16/16 05:04 08/15/16 08/15/16 03:23 08:40 Troponin I < 0.012 < 0.012 Impressions: Chest X-Ray 08/14/16 20:22 IMPRESSION: NO ACUTE RADIOGRAPHIC FINDING IN THE CHEST. NO SIGNIFICANT CHANGE FROM PRIOR STUDY. Head MRI 08/15/16 00:00 IMPRESSION: Positive for acute or sub-acute infarction in the posterior portion of the left temporal lobe.CHRONIC MICRO-VASCULAR ISCHEMIC CHANGES, more focal in the left occipital and right frontal lobes as described on the recent CT exam. Brain MRI with MRA 08/15/16 03:28 IMPRESSION: Focal diminished -occluded flow void in the posterior left temporal lobe MCA subsegmental branches correlating with the region of restricted diffusion consistent with acute infarct in this area. Carotid Doppler Study 08/15/16 03:29 IMPRESSION: NO HEMODYNAMICALLY SIGNIFICANT STENOSIS. Head CT 08/17/16 00:00 IMPRESSION: Early subacute infarct in the left posterior frontal and posterior temporal cortex and subcortical white matter, correlates with MRI brain 2016. Assessment & Plan - Diagnosis (1) CVA (cerebral vascular accident) Qualifiers: CVA mechanism: unspecified Qualified Code(s): I63.9 - Cerebral infarction, unspecified Is this a current diagnosis for this admission?: Yes (2) Atrial fibrillation Qualifiers: Atrial fibrillation type: unspecified Qualified Code(s): I48.91 - Unspecified atrial fibrillation Is this a current diagnosis for this admission?: Yes (3) Diabetes Qualifiers: Diabetes mellitus type: type 2 Diabetes mellitus complication status: with unspecified complications Diabetes mellitus superintendent marine oil terminal insulin use: without superintendent marine oil terminal use Qualified Code(s): E11.8 - Type 2 diabetes mellitus with unspecified complications; Z79.4 - medical terminologist (current) use of insulin Is this a current diagnosis for this admission?: Yes (4) Dyslipidemia Is this a current diagnosis for this admission?: Yes (5) Hypercalcemia Is this a current diagnosis for this admission?: Yes (6) Hypernatremia Is this a current diagnosis for this admission?: Yes (7) Hypertension Qualifiers: Hypertension type: essential hypertension Qualified Code(s): I10 - Essential (primary) hypertension Is this a current diagnosis for this admission?: Yes (8) CKD (chronic kidney disease), stage III Is this a current diagnosis for this admission?: Yes (9) Hypothyroidism Qualifiers: Hypothyroidism type: unspecified Qualified Code(s): E03.9 - Hypothyroidism, unspecified Is this a current diagnosis for this admission?: Yes - Time Time Spent with patient: 25-34 minutes - Plan Summary Plan Summary: We are going to discontinue the aspirin and begin eliquis. We will discontinue DVT prophylaxis with heparin as well. Repeat CT of the brain did not reveal any hemorrhage. Continue physical therapy and awaiting subacute rehabilitation bed. Recheck creatinine and electrolytes. Continue supportive care.
[2016-08-18] MEDS: APIXABAN 5 MG TABLET PO SCH ×2 (10:18→18:20)
--- NOTE | 2016-08-18 15:18 | EKG REPORT ---
SEVERITY:- ABNORMAL ECG - ATRIAL FIBRILLATION LEFT ANTERIOR FASCICULAR BLOCK NONSPECIFIC T ABNORMALITIES, LATERAL LEADS : Confirmed by: Trinidad De La Rosa MD 18-Aug-2016 15:17:21
--- NOTE | 2016-08-18 19:17 | PDOC PROGRESS REPORT ---
Subjective Progress Note for:: 08/18/16 Subjective:: Patient noted to be significantly. Patient still has dysphasia but seems to be slightly improved. On questioning she denied any chest pains or shortness of breath. She is still aphasic with significant dysphasia. Patient's son in the room. Patient in atrial flutter fibrillation. Physical Exam Vital Signs: Temp Pulse Resp BP Pulse Ox 98.6 F 103 H 16 132/84 H 99 08/18/16 11:53 08/18/16 11:53 08/18/16 11:53 08/18/16 11:53 08/18/16 11:53 Intake & Output 08/17/16 08/18/16 08/19/16 06:59 06:59 06:59 Intake Total 2371 1694 Output Total 1800 600 Balance 571 1094 Weight 69 kg 69.1 kg Exam: GENERAL: well-nourished and in no acute distress. Alert and oriented x3 HEAD: Atraumatic, normocephalic. EYES: Pupils equal round and reactive to light, extraocular movements intact, sclera anicteric, conjunctiva are normal. ENT: TMs normal, nares patent, oropharynx clear without exudates. Moist mucous membranes. No oral ulcerations or bleeding gums noted NECK: supple without lymphadenopathy. Trachea is central. No cervical or axillary lymphadenopathy noted. Carotids are 2+, JVD WNL LUNGS: Respiration seems nonlabored, no significant accessory muscle action noted. Breath sounds clear to auscultation bilaterally and equal. No wheezes rales or rhonchi. No significant dullness noted on percussion. CHEST: Palpation of the chest wall shows no significant chest wall tenderness or abnormalities. 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 ABDOMEN: Soft, no significant tenderness appreciated, normoactive bowel sounds. No guarding, no rebound. No rigidity noted . No masses appreciated. EXTREMITIES: Pedal pulses are 1-2+, no calf tenderness noted. No clubbing or cyanosis.trace to 1+ pedal edema noted NEUROLOGICAL: Focused neurological exam showed mild generalized weakness but with significant dysphasia. No significant facial asymmetry noted. PSYCH: Normal mood, normal affect. Judgment and insight could not be checked in view of dysphasia. SKIN: No significant ecchymosis, rash, ulcerations or signs of pruritus noted. MUSCULOSKELETAL EXAM: No significant joint swelling noted. Results Laboratory Results: 08/15/16 07:26 08/16/16 05:04 08/15/16 08/15/16 03:23 08:40 Troponin I < 0.012 < 0.012 Impressions: Chest X-Ray 08/14/16 20:22 IMPRESSION: NO ACUTE RADIOGRAPHIC FINDING IN THE CHEST. NO SIGNIFICANT CHANGE FROM PRIOR STUDY. Head MRI 08/15/16 00:00 IMPRESSION: Positive for acute or sub-acute infarction in the posterior portion of the left temporal lobe.CHRONIC MICRO-VASCULAR ISCHEMIC CHANGES, more focal in the left occipital and right frontal lobes as described on the recent CT exam. Brain MRI with MRA 08/15/16 03:28 IMPRESSION: Focal diminished -occluded flow void in the posterior left temporal lobe MCA subsegmental branches correlating with the region of restricted diffusion consistent with acute infarct in this area. Carotid Doppler Study 08/15/16 03:29 IMPRESSION: NO HEMODYNAMICALLY SIGNIFICANT STENOSIS. Head CT 08/17/16 00:00 IMPRESSION: Early subacute infarct in the left posterior frontal and posterior temporal cortex and subcortical white matter, correlates with MRI brain 2016. Assessment & Plan - Diagnosis (1) CVA (cerebral vascular accident) Qualifiers: CVA mechanism: unspecified Qualified Code(s): I63.9 - Cerebral infarction, unspecified Is this a current diagnosis for this admission?: Yes (2) Atrial fibrillation Qualifiers: Atrial fibrillation type: unspecified Qualified Code(s): I48.91 - Unspecified atrial fibrillation Is this a current diagnosis for this admission?: Yes (3) Diabetes Qualifiers: Diabetes mellitus type: type 2 Diabetes mellitus complication status: with unspecified complications Diabetes mellitus residential insulin use: without residential use Qualified Code(s): E11.8 - Type 2 diabetes mellitus with unspecified complications; 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 Patient has atrial flutter fibrillation. Patient today started on ELIQUIS at 5 mg by mouth twice a day. As regards atrial fibrillation, Heart rate seems well controlled. would recommend stopping aspirin. Atrial fibrillation: Currently stable rate well controlled. Patient now on oral anticoagulation. Diabetes: Recommend good control of blood sugar. However should avoid any hypoglycemia. Patient being expertly managed by primary care MAndie Hypertension: We will avoid aggressive control at this point but long-term blood pressure goal is less than 140 mmHg. Dyslipidemia: Patient started on antilipid therapy. Agree with other management plans as outlined by the hospitalist - Time Time with patient: 15-25 minutes - CODE STATUS was discussed, patient remains full code. Surrogate decision-maker unchanged. Multiple medical problems were addressed.More than 50% of the time spent coordinating care, discussing management plans with involved caregivers. Management plans discussed with involved personnels. Medical decision making was of moderate complexity.
[2016-08-18] MEDS: ACETAMINOPHEN 325 MG TABLET PO PRN (19:44)
[2016-08-18] MEDS: ATORVASTATIN CALCIUM 40 MG TABLET PO SCH (22:32)
[2016-08-19] MEDS: ACETAMINOPHEN 325 MG TABLET PO PRN ×2 (06:08→21:37)
[2016-08-19] MEDS: LEVOTHYROXINE SODIUM 0.088 MG TABLET PO SCH (06:08)
[2016-08-19 06:56] LABS: ANION GAP 15 (5-19); BLOOD UREA NITROGEN 18 mg/dL (7-20); CALCIUM 9.8 mg/dL (8.4-10.2); CARBON DIOXIDE 22 mmol/L (22-30); CHLORIDE 105 mmol/L (98-107); GLUCOSE 138 mg/dL (75-110); POTASSIUM 4.1 mmol/L (3.6-5.0); SODIUM 142.4 mmol/L (137-145)
--- NOTE | 2016-08-19 09:52 | PDOC PROGRESS REPORT ---
Subjective Progress Note for:: 08/19/16 Subjective:: Patient reportedly doing stable. Mild slurring of speech unchanged. Swallowing remains good and patient able to tolerate oral intake. Able to ambulate with assistance. There is right-sided weakness. Patient denies any shortness of breath or coughing or choking sensation. No chills or fever. No reported agitation, worsening weakness or new weakness. Physical Exam Vital Signs: Temp Pulse Resp BP Pulse Ox 97.9 F 97 16 130/72 H 98 08/19/16 07:38 08/19/16 07:38 08/19/16 07:38 08/19/16 07:38 08/19/16 07:38 Intake & Output 08/18/16 08/19/16 08/20/16 06:59 06:59 06:59 Intake Total 1694 1835 Output Total 600 1100 Balance 1094 735 Weight 69.1 kg 69.1 kg General appearance: PRESENT: no acute distress, cooperative, obese Head exam: PRESENT: normocephalic Eye exam: PRESENT: conjunctiva pink Mouth exam: PRESENT: moist, neck supple Neck exam: ABSENT: JVD Respiratory exam: PRESENT: clear to auscultation emily. ABSENT: rhonchi, wheezes Cardiovascular exam: PRESENT: irregular rhythm. ABSENT: gallop GI/Abdominal exam: PRESENT: soft. ABSENT: distended, tenderness Extremities exam: ABSENT: pedal edema Neurological exam: PRESENT: alert, awake, oriented to situation Skin exam: PRESENT: dry, warm. ABSENT: cyanosis Results Laboratory Results: 08/15/16 07:26 08/19/16 05:49 08/19/16 05:49 Sodium 142.4 Potassium 4.1 Chloride 105 Carbon Dioxide 22 Anion Gap 15 BUN 18 Creatinine 1.20 Est GFR ( Amer) 52 L Est GFR (Non-Af Amer) 43 L Glucose 138 H Calcium 9.8 08/15/16 08/15/16 03:23 08:40 Troponin I < 0.012 < 0.012 Impressions: Chest X-Ray 08/14/16 20:22 IMPRESSION: NO ACUTE RADIOGRAPHIC FINDING IN THE CHEST. NO SIGNIFICANT CHANGE FROM PRIOR STUDY. Head MRI 08/15/16 00:00 IMPRESSION: Positive for acute or sub-acute infarction in the posterior portion of the left temporal lobe.CHRONIC MICRO-VASCULAR ISCHEMIC CHANGES, more focal in the left occipital and right frontal lobes as described on the recent CT exam. Brain MRI with MRA 08/15/16 03:28 IMPRESSION: Focal diminished -occluded flow void in the posterior left temporal lobe MCA subsegmental branches correlating with the region of restricted diffusion consistent with acute infarct in this area. Carotid Doppler Study 08/15/16 03:29 IMPRESSION: NO HEMODYNAMICALLY SIGNIFICANT STENOSIS. Head CT 08/17/16 00:00 IMPRESSION: Early subacute infarct in the left posterior frontal and posterior temporal cortex and subcortical white matter, correlates with MRI brain 2016. Assessment & Plan - Diagnosis (1) CVA (cerebral vascular accident) Qualifiers: CVA mechanism: unspecified Qualified Code(s): I63.9 - Cerebral infarction, unspecified Is this a current diagnosis for this admission?: Yes (2) Atrial fibrillation Qualifiers: Atrial fibrillation type: unspecified Qualified Code(s): I48.91 - Unspecified atrial fibrillation Is this a current diagnosis for this admission?: Yes (3) Diabetes Qualifiers: Diabetes mellitus type: type 2 Diabetes mellitus complication status: with unspecified complications Diabetes mellitus terminal system operator insulin use: without terminal system operator use Qualified Code(s): E11.8 - Type 2 diabetes mellitus with unspecified complications; Z79.4 - halfway (current) use of insulin Is this a current diagnosis for this admission?: Yes (4) Dyslipidemia Is this a current diagnosis for this admission?: Yes (5) Hypercalcemia Is this a current diagnosis for this admission?: Yes (6) Hypernatremia Is this a current diagnosis for this admission?: Yes (7) Hypertension Qualifiers: Hypertension type: essential hypertension Qualified Code(s): I10 - Essential (primary) hypertension Is this a current diagnosis for this admission?: Yes (8) CKD (chronic kidney disease), stage III Is this a current diagnosis for this admission?: Yes (9) Hypothyroidism Qualifiers: Hypothyroidism type: unspecified Qualified Code(s): E03.9 - Hypothyroidism, unspecified Is this a current diagnosis for this admission?: Yes - Time Time Spent with patient: Less than 15 minutes - Plan Summary Plan Summary: Continue prior medication and supportive care. Continue physical therapy. Awaiting rehabilitation bed.
[2016-08-19] MEDS: APIXABAN 5 MG TABLET PO SCH ×2 (11:03→18:32)
--- NOTE | 2016-08-19 14:09 | PDOC PROGRESS REPORT ---
Subjective Progress Note for:: 08/19/16 Subjective:: Patient noted to be significantly. Patient still has dysphasia but seems to be gradually improving. On questioning she denied any chest pains or shortness of breath. She is still aphasic with significant dysphasia. Patient's son and other family members in the room. Patient in atrial flutter fibrillation. Heart rate is reasonably well controlled. Patient has no other significant complaints except some arthritic discomfort. Physical Exam Vital Signs: Temp Pulse Resp BP Pulse Ox 97.9 F 97 16 130/72 H 98 08/19/16 07:38 08/19/16 07:38 08/19/16 07:38 08/19/16 07:38 08/19/16 07:38 Intake & Output 08/18/16 08/19/16 08/20/16 06:59 06:59 06:59 Intake Total 1694 1835 Output Total 600 1100 Balance 1094 735 Weight 69.1 kg 69.1 kg Exam: GENERAL: well-nourished and in no acute distress. Alert and orientation cannot be checked due to significant dysphasia. HEAD: Atraumatic, normocephalic. EYES: Pupils equal round and reactive to light, extraocular movements intact, sclera anicteric, conjunctiva are normal. ENT: TMs normal, nares patent, oropharynx clear without exudates. Moist mucous membranes. No oral ulcerations or bleeding gums noted NECK: supple without lymphadenopathy. Trachea is central. No cervical or axillary lymphadenopathy noted. Carotids are 2+, JVD WNL LUNGS: Respiration seems nonlabored, no significant accessory muscle action noted. Breath sounds clear to auscultation bilaterally and equal. No wheezes rales or rhonchi. No significant dullness noted on percussion. CHEST: Palpation of the chest wall shows no significant chest wall tenderness or abnormalities. 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 ABDOMEN: Soft, no significant tenderness appreciated, normoactive bowel sounds. No guarding, no rebound. No rigidity noted . No masses appreciated. EXTREMITIES: Pedal pulses are 1-2+, no calf tenderness noted. No clubbing or cyanosis.trace to 1+ pedal edema noted NEUROLOGICAL: Focused neurological exam showed generalized weakness but no significant focal weakness appreciated. No facial asymmetry noted. Significant dysphasia is still persists. PSYCH: Normal mood, normal affect. Judgment and insight cannot be checked because of significant dysphasia. SKIN: No significant ecchymosis, rash, ulcerations or signs of pruritus noted. MUSCULOSKELETAL EXAM: No significant joint swelling noted. Results Laboratory Results: 08/15/16 07:26 08/19/16 05:49 08/19/16 05:49 Sodium 142.4 Potassium 4.1 Chloride 105 Carbon Dioxide 22 Anion Gap 15 BUN 18 Creatinine 1.20 Est GFR ( Amer) 52 L Est GFR (Non-Af Amer) 43 L Glucose 138 H Calcium 9.8 08/15/16 08/15/16 03:23 08:40 Troponin I < 0.012 < 0.012 Impressions: Chest X-Ray 08/14/16 20:22 IMPRESSION: NO ACUTE RADIOGRAPHIC FINDING IN THE CHEST. NO SIGNIFICANT CHANGE FROM PRIOR STUDY. Head MRI 08/15/16 00:00 IMPRESSION: Positive for acute or sub-acute infarction in the posterior portion of the left temporal lobe.CHRONIC MICRO-VASCULAR ISCHEMIC CHANGES, more focal in the left occipital and right frontal lobes as described on the recent CT exam. Brain MRI with MRA 08/15/16 03:28 IMPRESSION: Focal diminished -occluded flow void in the posterior left temporal lobe MCA subsegmental branches correlating with the region of restricted diffusion consistent with acute infarct in this area. Carotid Doppler Study 08/15/16 03:29 IMPRESSION: NO HEMODYNAMICALLY SIGNIFICANT STENOSIS. Head CT 08/17/16 00:00 IMPRESSION: Early subacute infarct in the left posterior frontal and posterior temporal cortex and subcortical white matter, correlates with MRI brain 2016. Assessment & Plan - Diagnosis (1) CVA (cerebral vascular accident) Qualifiers: CVA mechanism: unspecified Qualified Code(s): I63.9 - Cerebral infarction, unspecified Is this a current diagnosis for this admission?: Yes (2) Atrial fibrillation Qualifiers: Atrial fibrillation type: unspecified Qualified Code(s): I48.91 - Unspecified atrial fibrillation Is this a current diagnosis for this admission?: Yes (3) Diabetes Qualifiers: Diabetes mellitus type: type 2 Diabetes mellitus complication status: with unspecified complications Diabetes mellitus meterman insulin use: without meterman use Qualified Code(s): E11.8 - Type 2 diabetes mellitus with unspecified complications; 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 Patient placed on meterman oral anticoagulation. Atrial fibrillation: Seems persistent and may well be chronic. Continue with rate control and chronic anticoagulation. Diabetes:Recommend good control of blood sugar. However should avoid any hypoglycemia. Patient being expertly managed by primary care M.DTesha Hypertension:Blood pressure goal in this patient is 140/90 or less. This was discussed with the patient. Currently blood pressure under reasonable control. Better medication for this patient are PETER inhibitor/ARB/beta rylan etc. discussed side effects of uncontrolled hypertension and also severe hypotension. Dyslipidemia: LDL goal should be less than 70 in this lady. Continue with statin therapy. Statins been shown to reduce future stroke risk. We will repeat an EKG for any evolving changes in a.m. - Time Time with patient: 15-25 minutes - CODE STATUS was discussed, patient remains full code. Surrogate decision-maker unchanged. Multiple medical problems were addressed.More than 50% of the time spent coordinating care, discussing management plans with involved caregivers. Management plans discussed with involved personnels. Medical decision making was of moderate complexity.
[2016-08-19] MEDS: 1/2 NORMAL SALINE 1,000 ML IV PRN (18:33)
[2016-08-19] MEDS: ATORVASTATIN CALCIUM 40 MG TABLET PO SCH (21:37)
[2016-08-20] MEDS: ACETAMINOPHEN 325 MG TABLET PO PRN (06:25)
[2016-08-20] MEDS: LEVOTHYROXINE SODIUM 0.088 MG TABLET PO SCH (06:26)
--- NOTE | 2016-08-20 08:31 | EKG REPORT ---
SEVERITY:- ABNORMAL ECG - SINUS RHYTHM LEFT AXIS DEVIATION PROBABLE LVH WITH SECONDARY REPOL ABNRM : Confirmed by: Samuel Mcgrath 20-Aug-2016 08:31:14
[2016-08-20] MEDS: APIXABAN 5 MG TABLET PO SCH ×2 (12:01→18:12)
--- NOTE | 2016-08-20 17:05 | PDOC PROGRESS REPORT ---
Subjective Progress Note for:: 08/20/16 Subjective:: Patient reportedly doing stable. Mild slurring of speech unchanged. No Worsening symptoms. Swallowing remains good and patient able to tolerate oral intake. Able to ambulate with assistance. There is right-sided weakness present. Patient denies any shortness of breath or coughing or choking sensation. No chills or fever. Physical Exam Vital Signs: Temp Pulse Resp BP Pulse Ox 97.9 F 74 18 138/72 H 100 08/20/16 11:26 08/20/16 11:26 08/20/16 11:26 08/20/16 11:26 08/20/16 11:26 Intake & Output 08/19/16 08/20/16 08/21/16 06:59 06:59 06:59 Intake Total 1835 2234 Output Total 1100 300 Balance 735 1934 Weight 69.1 kg 69.7 kg General appearance: PRESENT: no acute distress, cooperative, obese Head exam: PRESENT: normocephalic Eye exam: PRESENT: conjunctiva pink, EOMI Mouth exam: PRESENT: moist, neck supple Neck exam: ABSENT: JVD Respiratory exam: PRESENT: clear to auscultation emily. ABSENT: rhonchi, wheezes Cardiovascular exam: PRESENT: irregular rhythm. ABSENT: gallop GI/Abdominal exam: PRESENT: hypoactive bowel sounds, soft. ABSENT: distended, tenderness Extremities exam: PRESENT: other - Trace edema Neurological exam: PRESENT: alert, awake, oriented to situation Skin exam: PRESENT: dry, warm. ABSENT: cyanosis Results Laboratory Results: 08/15/16 07:26 08/19/16 05:49 08/15/16 08/15/16 03:23 08:40 Troponin I < 0.012 < 0.012 Impressions: Chest X-Ray 08/14/16 20:22 IMPRESSION: NO ACUTE RADIOGRAPHIC FINDING IN THE CHEST. NO SIGNIFICANT CHANGE FROM PRIOR STUDY. Head MRI 08/15/16 00:00 IMPRESSION: Positive for acute or sub-acute infarction in the posterior portion of the left temporal lobe.CHRONIC MICRO-VASCULAR ISCHEMIC CHANGES, more focal in the left occipital and right frontal lobes as described on the recent CT exam. Brain MRI with MRA 08/15/16 03:28 IMPRESSION: Focal diminished -occluded flow void in the posterior left temporal lobe MCA subsegmental branches correlating with the region of restricted diffusion consistent with acute infarct in this area. Carotid Doppler Study 08/15/16 03:29 IMPRESSION: NO HEMODYNAMICALLY SIGNIFICANT STENOSIS. Head CT 08/17/16 00:00 IMPRESSION: Early subacute infarct in the left posterior frontal and posterior temporal cortex and subcortical white matter, correlates with MRI brain 2016. Assessment & Plan - Diagnosis (1) CVA (cerebral vascular accident) Qualifiers: CVA mechanism: unspecified Qualified Code(s): I63.9 - Cerebral infarction, unspecified Is this a current diagnosis for this admission?: Yes (2) Atrial fibrillation Qualifiers: Atrial fibrillation type: unspecified Qualified Code(s): I48.91 - Unspecified atrial fibrillation Is this a current diagnosis for this admission?: Yes (3) Diabetes Qualifiers: Diabetes mellitus type: type 2 Diabetes mellitus complication status: with unspecified complications Diabetes mellitus petroleum terminal plant operator insulin use: without petroleum terminal plant operator use Qualified Code(s): E11.8 - Type 2 diabetes mellitus with unspecified complications; Z79.4 - termite exterminator helper (current) use of insulin Is this a current diagnosis for this admission?: Yes (4) Dyslipidemia Is this a current diagnosis for this admission?: Yes (5) Hypercalcemia Is this a current diagnosis for this admission?: Yes (6) Hypernatremia Is this a current diagnosis for this admission?: Yes (7) Hypertension Qualifiers: Hypertension type: essential hypertension Qualified Code(s): I10 - Essential (primary) hypertension Is this a current diagnosis for this admission?: Yes (8) CKD (chronic kidney disease), stage III Is this a current diagnosis for this admission?: Yes (9) Hypothyroidism Qualifiers: Hypothyroidism type: unspecified Qualified Code(s): E03.9 - Hypothyroidism, unspecified Is this a current diagnosis for this admission?: Yes - Time Time Spent with patient: 15-24 minutes Anticipated discharge: SNF Within: within 24 hours - Plan Summary Plan Summary: Continue current medication , anticoagulation, and supportive care. Continue physical therapy. Awaiting bed in subacute rehabilitation.
--- NOTE | 2016-08-20 17:30 | PDOC TRANSFER SUMMARY ---
General - Admit/Disc Date/PCP Admission Date/Primary Care Provider: 08/15/16 03:13 WISAM NELSON MD Discharge Date: 08/21/16 - Discharge Diagnosis (1) CVA (cerebral vascular accident) Is this a current diagnosis for this admission?: Yes (2) Atrial fibrillation Is this a current diagnosis for this admission?: Yes (3) Diabetes Is this a current diagnosis for this admission?: Yes (4) Dyslipidemia Is this a current diagnosis for this admission?: Yes (5) Hypercalcemia Is this a current diagnosis for this admission?: Yes (6) Hypernatremia Is this a current diagnosis for this admission?: Yes (7) Hypertension Is this a current diagnosis for this admission?: Yes (8) CKD (chronic kidney disease), stage III Is this a current diagnosis for this admission?: Yes (9) Hypothyroidism Is this a current diagnosis for this admission?: Yes - Additional Information Resuscitation Status: Full Code Discharge Diet: Cardiac - low-fat low-salt, Diabetic - no concentrated sweets, Other (Comments) - soft mechanical with ground meats and thin liquids Discharge Activity: Activity As Tolerated, Balance Activity w/Rest, Slowly Increase Activity Home Medications: Hydrochlorothiazide [Hydrodiuril 25 mg Tablet] 25 mg PO DAILY 08/15/16 Levothyroxine Sodium [Synthroid 0.088 mg Tablet] 0.088 mg PO DAILY 08/15/16 Linagliptin [Tradjenta] 5 mg PO DAILY 08/15/16 Nebivolol HCl [Bystolic 5 mg Tablet] 5 mg PO DAILY 08/15/16 Apixaban [Eliquis 5 mg Tablet] 5 mg PO BID tablet 08/20/16 Atorvastatin Calcium [Lipitor 40 mg Tablet] 40 mg PO QHS tablet 08/20/16 Glipizide [Glipizide Xl] 2.5 mg PO Q12 #0 08/20/16 Insulin Lispro [Humalog Insulin (Lispro) 100 unit/mL] 0 - 12 unit SUBCUT ACHSP PRN unit 08/20/16 Ipratropium/Albuterol Sulfate [Duoneb 3 ml Ampul] 3 ml NEB [id number] PRN vial.neb 08/20/16 History of Present Illness Admission Date/PCP: 08/15/16 03:13 WISAM NELSON MD Patient complains of: Altered mental status History of Present Illness: GONZALO WEAVER is a 81 year old female who presents to the emergency room for evaluation of above complaint. Patient has been discussed with emergency room physician who evaluated the patient. Patient has pronounced expressive dysphasia and is able to provide no history whatsoever in terms of acute or chronic events, review of systems, personal habits, family history, etc. No friends or family are present. No Old inpatient records are available for review. Patient also does not seem to understand many basic questions that could be answered with a nod or shake of her head. Her only intelligible verbal response is an occasional "okay." Approximately 5:30 PM the evening of the , the pick up attendant of her local restorationism found the patient to be confused, and unable to express herself or understand basic requests. No obvious weakness. No recent illnesses. No change in medication. No further information available this point in time. Onset of atrial fibrillation in the emergency room. Uncertain if new or old. Only one prior EKG, without evidence of atrial fibrillation or flutter. Laboratory results are listed in [email or web address] and are reviewed. X-ray summary results are listed below, with full report(s) reviewed. . EKG reviewed. And compared to tracing from December 29 of last year. Social history/personal habits: Uncertain at this point in time. Allergies/adverse reactions NKDA. Home medications uncertain at this point in time. Home medications initially autopopulated into [employer] may not accurately reflect patient's true medications, dosages, and/or frequencies. Order has been entered for staff to contact family, outpatient physician, and/ or pharmacy to more accurately determine medications, dosages, and frequencies and to contact physician when that has been accomplished. REVIEW OF SYSTEMS: See history and present illness. No further information available this point in time. PHYSICAL EXAMINATION: 5 feet 6 inches tall. 70.8 kg. Blood pressure 150/74. Pulse 81 and slightly irregular. Respirations are 20 and unlabored. 96% saturation on room air. Temperature 98.1. Slightly overweight otherwise well-nourished well-developed -[place] female appearing a number of years younger than her stated age. Awake alert and cooperative. Please see comments under history and present illness. Female nurse Gabriella is present. Skin is warm and dry. No grossly obvious evidence of rash in areas of skin examined. No subcutaneous nodules palpated. ENT: Hearing grossly normal to normal conversation. Tongue midline on protrusion pink and slightly moist. Eyes: No scleral icterus. Pupils equal and reactive to light at 4 mm. [place] conjunctivae. Neck is supple and nontender to gentle passive range of motion and palpation. Midline trachea. No palpable thyroid nodule mass enlargement or tenderness. Lymphatic: No palpable cervical or clavicular nodes. Neck and lymphatic exams limited by patient body habitus. Psychiatric: Can't be adequately evaluated due to her current status. Lungs: Auscultation reveals equal breath sounds bilaterally. No use of accessory respiratory muscles. Mild brief inspiratory and expiratory wheezing and faint crackles. Cardiovascular: Heart regular rate and rhythm, without gallop murmur or rub. No carotid or abdominal aortic bruits. No ankle or pedal edema. Faintly palpable dorsalis pedis pulses. Abdomen: soft, slightly obese, nontender with positive bowel sounds. Unable to adequately evaluate abdomen for masses or organomegaly due to body habitus. Extremities: Hands and feet are warm and dry. No calf tenderness to compression. No grossly obvious visual evidence of calf swelling. Gentle manipulation of upper and lower extremities fails to reveal any obvious evidence of injury or instability to involved major joints. Neurologic: Cranial Nerves II through XII exam limited only to tongue protrusion. Does not seem to understand basic requests for remainder of exam.. Light touch can't be evaluated due to her current status.. Patellar reflexes absent. Absent Babinski. Has only scant motor function on the right side, consisting of very faint handgrip, and very faint movement of her toes. Otherwise, no appreciable motor function of right upper or lower extremities. Handgrip 5 over 5 on left. Does not seem to understand request for biceps and triceps function. Dorsiflexion plantar flexion of the left foot 5 over 5 along with flexion of the left thigh at the hip; doesn't seem to understand basic request for extension of the left lower extremity at the hip. Hospital Course Hospital Course: The patient was admitted to [facility]. The patient had an MRI of the brain which revealed acute to subacute stroke in the left MCA distribution mainly in temporal lobe. Patient noted to have an old stroke likewise on the left parietal and right frontal lobe. Patient has atrial fibrillation. Cardiology was consulted and recommended chronic anticoagulation with eliquis after 72 hours post stroke. The patient was placed on antiplatelet therapy and later on transitioned to eliquis. Physical therapy was instituted. Speech therapy evaluation was done and patient tolerated soft mechanical diet with ground meats and thin liquids. Patient did good with physical therapy. associate financial planner was consulted for subacute rehabilitation. Carotid Doppler did not reveal any significant stenosis. 2-D echocardiogram shows normal ejection fraction with no reported thrombus. No significant valvular defect was likewise noted. A repeat CT scan of the brain was done showing no hemorrhagic transformation prior to starting chronic anticoagulation. The rest of the hospital stay is unremarkable. Physical Exam Vital Signs: Temp Pulse Resp BP Pulse Ox 97.9 F 74 18 138/72 H 100 08/20/16 11:26 08/20/16 11:26 08/20/16 11:26 08/20/16 11:26 08/20/16 11:26 Intake & Output 08/19/16 08/20/16 08/21/16 06:59 06:59 06:59 Intake Total 1835 2234 700 Output Total 1100 300 475 Balance 735 1934 225 Weight 69.1 kg 69.7 kg General appearance: PRESENT: no acute distress, cooperative, obese Head exam: PRESENT: normocephalic Eye exam: PRESENT: conjunctiva pink Mouth exam: PRESENT: moist, neck supple Neck exam: ABSENT: JVD Respiratory exam: PRESENT: clear to auscultation emily Cardiovascular exam: PRESENT: irregular rhythm. ABSENT: gallop GI/Abdominal exam: PRESENT: normal bowel sounds, soft. ABSENT: distended, tenderness Extremities exam: PRESENT: other - Trace edema Neurological exam: PRESENT: alert, awake, oriented to situation Skin exam: PRESENT: dry, warm. ABSENT: cyanosis Results Laboratory Results: 08/15/16 07:26 08/19/16 05:49 08/15/16 08/15/16 03:23 08:40 Troponin I < 0.012 < 0.012 Impressions: Chest X-Ray 08/14/16 20:22 IMPRESSION: NO ACUTE RADIOGRAPHIC FINDING IN THE CHEST. NO SIGNIFICANT CHANGE FROM PRIOR STUDY. Head MRI 08/15/16 00:00 IMPRESSION: Positive for acute or sub-acute infarction in the posterior portion of the left temporal lobe.CHRONIC MICRO-VASCULAR ISCHEMIC CHANGES, more focal in the left occipital and right frontal lobes as described on the recent CT exam. Brain MRI with MRA 08/15/16 03:28 IMPRESSION: Focal diminished -occluded flow void in the posterior left temporal lobe MCA subsegmental branches correlating with the region of restricted diffusion consistent with acute infarct in this area. Carotid Doppler Study 08/15/16 03:29 IMPRESSION: NO HEMODYNAMICALLY SIGNIFICANT STENOSIS. Head CT 08/17/16 00:00 IMPRESSION: Early subacute infarct in the left posterior frontal and posterior temporal cortex and subcortical white matter, correlates with MRI brain 2016. Transfer Plan - Disposition Transfer Plan: Transferred to [facility] for subacute rehabilitation - Time Spent with Patient Time spent with patient: Less than 30 Minutes Qualifiers PATEINT BEING DISCHARGED WITH ANY OF THE FOLLOWING DIAGNOSIS?: Stroke Stroke Pt being discharged on Anti-thrombolytic therapy?: No Reason(s) for not prescribing Anti-thrombolytic therapy:: Not indicated Stroke Pt being discharged on Anti-coagulation therapy?: Yes Stroke Pt being discharged on Statins?: Yes Plan Discharge Plan: Follow-up with primary care physician in one week. The patient will also be followed by the physician at the rehabilitation facility. Time Spent: Less than 30 Minutes
--- NOTE | 2016-08-20 21:34 | PDOC PROGRESS REPORT ---
Subjective Progress Note for:: 08/20/16 Subjective:: Patient noted to be significantly better. Patient still has dysphasia but seems to be gradually improving. On questioning she denied any chest pains or shortness of breath. She is still aphasic with significant dysphasia. Patient' s son and other family members in the room. Patient in sinus rhythm today. Heart rate is reasonably well controlled. Physical Exam Vital Signs: Temp Pulse Resp BP Pulse Ox 97.9 F 83 18 138/72 H 100 08/20/16 11:26 08/20/16 19:00 08/20/16 11:26 08/20/16 11:26 08/20/16 11:26 Intake & Output 08/19/16 08/20/16 08/21/16 06:59 06:59 06:59 Intake Total 1835 2234 1180 Output Total 1100 300 475 Balance 735 1934 705 Weight 69.1 kg 69.7 kg Exam: GENERAL: well-nourished and in no acute distress. Alert and oriented x3 HEAD: Atraumatic, normocephalic. EYES: Pupils equal round and reactive to light, extraocular movements intact, sclera anicteric, conjunctiva are normal. ENT: TMs normal, nares patent, oropharynx clear without exudates. Moist mucous membranes. No oral ulcerations or bleeding gums noted NECK: supple without lymphadenopathy. Trachea is central. No cervical or axillary lymphadenopathy noted. Carotids are 2+, JVD WNL LUNGS: Respiration seems nonlabored, no significant accessory muscle action noted. Breath sounds clear to auscultation bilaterally and equal. No wheezes rales or rhonchi. No significant dullness noted on percussion. CHEST: Palpation of the chest wall shows no significant chest wall tenderness or abnormalities. HEART: [place] UX LEAD, No PSH, 1/6 MEHDI aortic area, 1/6 guillen systolic murmur mitral area, no rubs, no gallops. ABDOMEN: Soft, no significant tenderness appreciated, normoactive bowel sounds. No guarding, no rebound. No rigidity noted . No masses appreciated. EXTREMITIES: Pedal pulses are 1-2+, no calf tenderness noted. No clubbing or cyanosis.trace to 1+ pedal edema noted NEUROLOGICAL: Focused neurological exam showed no significant neurologic deficit. Normal speech, no focal weakness appreciated. PSYCH: Normal mood, normal affect. Judgment and insight within normal limits. SKIN: No significant ecchymosis, rash, ulcerations or signs of pruritus noted. MUSCULOSKELETAL EXAM: No significant joint swelling noted. Results Laboratory Results: 08/15/16 07:26 08/19/16 05:49 08/15/16 08/15/16 03:23 08:40 Troponin I < 0.012 < 0.012 Impressions: Chest X-Ray 08/14/16 20:22 IMPRESSION: NO ACUTE RADIOGRAPHIC FINDING IN THE CHEST. NO SIGNIFICANT CHANGE FROM PRIOR STUDY. Head MRI 08/15/16 00:00 IMPRESSION: Positive for acute or sub-acute infarction in the posterior portion of the left temporal lobe.CHRONIC MICRO-VASCULAR ISCHEMIC CHANGES, more focal in the left occipital and right frontal lobes as described on the recent CT exam. Brain MRI with MRA 08/15/16 03:28 IMPRESSION: Focal diminished -occluded flow void in the posterior left temporal lobe MCA subsegmental branches correlating with the region of restricted diffusion consistent with acute infarct in this area. Carotid Doppler Study 08/15/16 03:29 IMPRESSION: NO HEMODYNAMICALLY SIGNIFICANT STENOSIS. Head CT 08/17/16 00:00 IMPRESSION: Early subacute infarct in the left posterior frontal and posterior temporal cortex and subcortical white matter, correlates with MRI brain 2016. Assessment & Plan - Diagnosis (1) CVA (cerebral vascular accident) Qualifiers: CVA mechanism: unspecified Qualified Code(s): I63.9 - Cerebral infarction, unspecified Is this a current diagnosis for this admission?: Yes (2) Atrial fibrillation Qualifiers: Atrial fibrillation type: unspecified Qualified Code(s): I48.91 - Unspecified atrial fibrillation Is this a current diagnosis for this admission?: Yes (3) Diabetes Qualifiers: Diabetes mellitus type: type 2 Diabetes mellitus complication status: with unspecified complications Diabetes mellitus long-term insulin use: without intermediate card tender use Qualified Code(s): E11.8 - Type 2 diabetes mellitus with unspecified complications; Z79.4 - [facility] (current) use of insulin Is this a current diagnosis for this admission?: Yes (4) Hypertension Qualifiers: Hypertension type: essential hypertension Qualified Code(s): I10 - Essential (primary) hypertension Is this a current diagnosis for this admission?: Yes (5) Dyslipidemia Is this a current diagnosis for this admission?: Yes - Notes Notes: Patient today noted in sinus rhythm. Patient therefore has paroxysmal atrial fibrillation. Patient however will benefit from chronic anticoagulation. Continue with rate control medication should patient going to atrial fibrillation again. Cerebrovascular accident: Currently stable. Patient is showing slow improvement. She has significant dysphasia. Diabetes:Recommend good control of blood sugar. However should avoid any hypoglycemia. Patient being expertly managed by primary care MAndie Dyslipidemia:Patient noted to have dyslipidemia. LDL goal is less than 70. Recommend statin therapy at least intermediate or high dose, of high potency status. Periodic lipid panel and liver panel is indicated. Patient to report any significant muscle discomfort or other side effects. Hypertension:Blood pressure goal in this patient is 140/90 or less. This was discussed with the patient. Currently blood pressure under reasonable control. Better medication for this patient are PETER inhibitor/ARB/beta rylan etc. discussed side effects of uncontrolled hypertension and also severe hypotension. - Time Time with patient: 15-25 minutes - CODE STATUS was discussed, patient remains full code. Surrogate decision-maker unchanged. Multiple medical problems were addressed.More than 50% of the time spent coordinating care, discussing management plans with involved caregivers. Management plans discussed with involved personnels. Medical decision making was of moderate complexity.
[2016-08-20] MEDS: ATORVASTATIN CALCIUM 40 MG TABLET PO SCH (22:03)
[2016-08-20] MEDS: 1/2 NORMAL SALINE 1,000 ML IV PRN (22:04)
[2016-08-21] MEDS: LEVOTHYROXINE SODIUM 0.088 MG TABLET PO SCH (05:35)
--- NOTE | 2016-08-21 11:20 | PDOC PROGRESS REPORT ---
Subjective Progress Note for:: 08/21/16 Subjective:: Denies any complains. Continues with right-sided weakness. Discharge summary was dictated yesterday. Please see that dictation for full details. Physical Exam Vital Signs: Temp Pulse Resp BP Pulse Ox 97.9 F 70 16 136/65 H 99 08/21/16 07:36 08/21/16 07:36 08/21/16 07:36 08/21/16 07:36 08/21/16 07:36 Intake & Output 08/20/16 08/21/16 08/22/16 06:59 06:59 06:59 Intake Total 2234 2237 Output Total 300 475 Balance 1934 1762 Weight 69.7 kg General appearance: PRESENT: no acute distress Eye exam: PRESENT: conjunctiva pink. ABSENT: scleral icterus Ear exam: PRESENT: normal external ear exam Mouth exam: PRESENT: moist, tongue midline Neck exam: ABSENT: carotid bruit, JVD, lymphadenopathy, thyromegaly Respiratory exam: PRESENT: clear to auscultation emily. ABSENT: rales, rhonchi, wheezes Cardiovascular exam: PRESENT: irregular rhythm. ABSENT: diastolic murmur, rubs , systolic murmur GI/Abdominal exam: PRESENT: normal bowel sounds, soft. ABSENT: distended, guarding, mass, organolmegaly, rebound, tenderness Extremities exam: ABSENT: calf tenderness, clubbing, pedal edema Neurological exam: PRESENT: alert, awake, oriented to person, oriented to place , oriented to time, oriented to situation, motor sensory deficit, other - Patient has right-sided weakness 3 out of 5 strength in the upper and lower extremity. She also has expressive aphasia. Psychiatric exam: PRESENT: appropriate affect Skin exam: PRESENT: dry, intact, warm. ABSENT: cyanosis, rash Results Laboratory Results: 08/15/16 07:26 08/19/16 05:49 08/15/16 08/15/16 03:23 08:40 Troponin I < 0.012 < 0.012 Impressions: Chest X-Ray 08/14/16 20:22 IMPRESSION: NO ACUTE RADIOGRAPHIC FINDING IN THE CHEST. NO SIGNIFICANT CHANGE FROM PRIOR STUDY. Head MRI 08/15/16 00:00 IMPRESSION: Positive for acute or sub-acute infarction in the posterior portion of the left temporal lobe.CHRONIC MICRO-VASCULAR ISCHEMIC CHANGES, more focal in the left occipital and right frontal lobes as described on the recent CT exam. Brain MRI with MRA 08/15/16 03:28 IMPRESSION: Focal diminished -occluded flow void in the posterior left temporal lobe MCA subsegmental branches correlating with the region of restricted diffusion consistent with acute infarct in this area. Carotid Doppler Study 08/15/16 03:29 IMPRESSION: NO HEMODYNAMICALLY SIGNIFICANT STENOSIS. Head CT 08/17/16 00:00 IMPRESSION: Early subacute infarct in the left posterior frontal and posterior temporal cortex and subcortical white matter, correlates with MRI brain 2016. Assessment & Plan - Diagnosis (1) CVA (cerebral vascular accident) Qualifiers: CVA mechanism: unspecified Qualified Code(s): I63.9 - Cerebral infarction, unspecified Is this a current diagnosis for this admission?: YesPlan: The patient had an MCA infarction on the left with right-sided weakness. The patient also has a history of atrial fibrillation. She has been started on anticoagulation and will go to rehabilitation today for PT and OT and speech therapy. (2) Atrial fibrillation Qualifiers: Atrial fibrillation type: unspecified Qualified Code(s): I48.91 - Unspecified atrial fibrillation Is this a current diagnosis for this admission?: YesPlan: Patient was started on anticoagulation because of her atrial fibrillation and CVA. (3) Diabetes Qualifiers: Diabetes mellitus type: type 2 Diabetes mellitus complication status: with unspecified complications Diabetes mellitus usp insulin use: without tissue specialist use Qualified Code(s): E11.8 - Type 2 diabetes mellitus with unspecified complications; Z79.4 - speech and language clinician (current) use of insulin Is this a current diagnosis for this admission?: Yes (4) Dyslipidemia Is this a current diagnosis for this admission?: Yes (5) Hypernatremia Is this a current diagnosis for this admission?: Yes (6) Hypertension Qualifiers: Hypertension type: essential hypertension Qualified Code(s): I10 - Essential (primary) hypertension Is this a current diagnosis for this admission?: Yes (7) Hypothyroidism Qualifiers: Hypothyroidism type: unspecified Qualified Code(s): E03.9 - Hypothyroidism, unspecified Is this a current diagnosis for this admission?: Yes (8) CKD (chronic kidney disease), stage III Is this a current diagnosis for this admission?: Yes - Time Time Spent with patient: 25-34 minutes - Plan Summary Plan Summary: Patient is [facility].
[2016-08-21] MEDS: APIXABAN 5 MG TABLET PO SCH ×2 (12:52→17:34)
[2016-08-21 20:32] VITALS: BP 148/81
== END 2016-08-21 20:30 | DRG 65 ==
LOC: ER 19:17 → UNDOADMIN 23:47 → EH 23:47 → 3W 08-15 13:25
PROVIDERS: ADMIT Family Medicine; ATTEND Family Medicine
PROC: 3E0F73Z Introduction of Anti-inflammatory into Respiratory Tract, Via Natural or Artificial Opening (ICD-10-PCS; principal; 2016-08-15)
DX: I63.9 Cerebral infarction, unspecified (principal); E87.0 Hyperosmolality and hypernatremia; I48.91 Unspecified atrial fibrillation; E78.5 Hyperlipidemia, unspecified; E83.52 Hypercalcemia; I12.9 Hypertensive chronic kidney disease with stage 1 through stage 4 chronic kidney disease, or unspecified chronic kidney disease; E11.22 Type 2 diabetes mellitus with diabetic chronic kidney disease; N18.3 Chronic kidney disease, stage 3 (moderate); E03.9 Hypothyroidism, unspecified; R47.81 Slurred speech; E66.9 Obesity, unspecified; Z68.24 Body mass index [BMI] 24.0-24.9, adult; Z79.4 Long term (current) use of insulin; Z79.899 Other long term (current) drug therapy; Z88.6 Allergy status to analgesic agent; Z88.0 Allergy status to penicillin; Z88.8 Allergy status to other drugs, medicaments and biological substances
CPT/HCPCS: 36415; 51702; 70450; 70544; 70551; 71010; 80048; 80053; 80061; 80307; 81001; 82550; 82553; 82803; 82962; 83735; 84443; 84484; 85025; 85610; 85730; 93005; 93010; 93306; 93880; 99291; G8978-GP; G8979-GP; G8987-GO; G8988-GO; G9162-GN; G9163-GN; J1644; J3490; J7030

== ENCOUNTER 2017-07-11 12:30 | Inpatient (IN) | payer MEDICARE, BC ==
[2017-07-11] MEDS ORDERED: HYDRALAZINE HCL INJ/PF 20 MG/1 ML SDV IV ONE (12:32)
--- NOTE | 2017-07-11 12:33 | ER Document Report ---
ED General - General Stated Complaint: BLOOD PRESSURE ISSUES Time Seen by Provider: 07/11/17 12:32 Mode of Arrival: Ambulatory Information source: Patient Notes: 82 yr old female presents with complaints of high blood pressure from Dr Yanez office. Pt had hx of htn but was taken off meds by her pcp. pt is on eliquis. noted to have hx of afib. TRAVEL OUTSIDE OF THE [place] IN LAST 30 DAYS: No - HPI Onset: Just prior to arrival Onset/Duration: Sudden Quality of pain: No pain Severity: Mild Pain Level: Denies Associated symptoms: Other Exacerbated by: Denies Relieved by: Denies Similar symptoms previously: No Recently seen / treated by doctor: Yes - Related Data Allergies/Adverse Reactions: codeine Allergy (Unverified 08/15/16 13:42) Penicillins Allergy (Unverified 08/15/16 13:41) phenobarbital Allergy (Unverified 08/15/16 13:43) Past Medical History - Social History Smoking Status: Never Smoker Cigarette use (# per day): No Chew tobacco use (# tins/day): No Smoking Education Provided: No Family History: Reviewed & Not Pertinent - Past Medical History Cardiac Medical History: Reports: Hx Hypertension Endocrine Medical History: Reports: Hx Diabetes Mellitus Type 2 - Uncertain if type I and/or type II. Renal/ Medical History: Denies: Hx Peritoneal Dialysis Past Surgical History: Reports: Other - Uncertain at this point in time. Review of Systems - Review of Systems Notes: REVIEW OF SYSTEMS: CONSTITUTIONAL : Denies fever, chills, or sweats. Denies recent illness. EENT: Denies eye, ear, throat, or mouth pain or symptoms. Denies nasal or sinus congestion or discharge. Denies throat, tongue, or mouth swelling or difficulty swallowing. CARDIOVASCULAR: Denies chest pain. Denies palpitations or racing or irregular heart beat. Denies ankle edema. RESPIRATORY: Denies cough, cold, or chest congestion. Denies shortness of breath, difficulty breathing, or wheezing. GASTROINTESTINAL: Denies abdominal pain or distention. Denies nausea, vomiting , or diarrhea. Denies blood in vomitus, stools, or per rectum. Denies black, tarry stools. Denies constipation. GENITOURINARY: Denies difficulty urinating, painful urination, burning, frequency, blood in urine, or discharge. FEMALE GENITOURINARY: Denies vaginal bleeding, heavy or abnormal periods, irregular periods. Denies vaginal discharge or odor. MUSCULOSKELETAL: Denies back or neck pain or stiffness. Denies joint pain or swelling. SKIN: Denies rash, lesions or sores. HEMATOLOGIC : Denies easy bruising or bleeding. LYMPHATIC: Denies swollen, enlarged glands. NEUROLOGICAL: Denies confusion or altered mental status. Denies passing out or loss of consciousness. Denies dizziness or lightheadedness. Denies headache. Denies weakness or paralysis or loss of use of either side. Denies problems with gait or speech. Denies sensory loss, numbness, or tingling. Denies seizures. PSYCHIATRIC: Denies anxiety or stress. Denies depression, suicidal ideation, or homicidal ideation. ALL OTHER SYSTEMS REVIEWED AND NEGATIVE. PHYSICAL EXAMINATION: GENERAL: Well-appearing, well-nourished and in no acute distress. HEAD: Atraumatic, normocephalic. EYES: Pupils equal round and reactive to light, extraocular movements intact, conjunctiva are normal. ENT: Nares patent, oropharynx clear without exudates. Moist mucous membranes. NECK: Normal range of motion, supple without lymphadenopathy LUNGS: Breath sounds clear to auscultation bilaterally and equal. No wheezes rales or rhonchi. HEART: Regular rate and rhythm without murmurs ABDOMEN: Soft, nontender, nondistended abdomen. No guarding, no rebound. No masses appreciated. Female : deferred Musculoskeletal: Normal range of motion, no pitting or edema. No cyanosis. NEUROLOGICAL: Cranial nerves grossly intact. Normal speech, normal gait. Normal sensory, motor exams PSYCH: Normal mood, normal affect. SKIN: Warm, Dry, normal turgor, no rashes or lesions noted. Dictation was performed using [employer] voice recognition software Physical Exam - Vital signs Vitals: BP 178/136 H 07/11/17 12:53 Course - Re-evaluation Re-evalutation: 07/11/17 12:32 Hydralazine ordered for hypertensive emergency 07/11/17 13:41 Pts bp improved quickly, i reevaluated her and she is nauseated now, iv fluids and nausea meds ordered while i was in room pt went into afib rvr, cardizem drip will be started at 5mg without bolus since i do not want ot drop her pressure further - Vital Signs Vital signs: Temp Pulse Resp BP Pulse Ox 18 158/93 H 97 07/11/17 14:01 07/11/17 14:01 07/11/17 14:01 - Laboratory Result Diagrams: 07/11/17 12:45 07/11/17 12:45 Laboratory results interpreted by me: 07/11/17 07/11/17 12:45 12:45 RDW 16.8 H Sodium 147.3 H BUN 21 H Creatinine 1.57 H Est GFR ( Amer) 38 L Est GFR (Non-Af Amer) 32 L Glucose 118 H Alkaline Phosphatase 161 H Creatine Kinase 156 H - Diagnostic Test Radiology reviewed: Image reviewed, Reports reviewed - EKG Interpretation by Me EKG shows normal: Sinus rhythm, [place], Intervals, QRS Complexes Critical Care Note - Critical Care Note Total time excluding time spent on procedures (mins): 45 Comments: 45 minutes of critical care time spent in direct contact evaluating and reevaluating the patient, treating symptoms, reviewing labs and studies and speaking with family and consultants excluding any procedures Discharge - Discharge Clinical Impression: Atrial fibrillation with RVR, Hypertensive emergency, CKD (chronic kidney disease), stage III Condition: Serious Disposition: ADMITTED INPATIENT Admitting Provider: Hospitalist Unit Admitted: [facility]
[2017-07-11 12:56] LABS: ABSOLUTE BASOPHILS # (AUTO) 0.1 10^3/uL (0.0-0.2); ABSOLUTE EOSINOPHILS # (AUTO) 0.1 10^3/uL (0.0-0.6); ABSOLUTE LYMPHOCYTES (AUTO) 2.4 10^3/uL (0.5-4.7); ABSOLUTE MONOCYTES (AUTO) 0.4 10^3/uL (0.1-1.4); ABSOLUTE NEUT (AUTO) 4.8 10^3/uL (1.7-8.2); EOSINOPHILS % (AUTO) 1.7 % (0-6); HEMATOCRIT 39.7 % (36.0-47.0); HEMOGLOBIN 13.5 g/dL (12.0-15.5); HGB HCT DIFFERENCE 0.8; LYMPHOCYTES % (AUTO) 30.6 % (13-45); MEAN CORPUSCULAR HEMOGLOBIN 27.4 pg (27.0-33.4); MEAN CORPUSCULAR VOLUME 81 fl (80-97); MONOCYTES % (AUTO) 5.1 % (3-13); RED BLOOD COUNT 4.93 10^6/uL (3.72-5.28); RED CELL DISTRIBUTION WIDTH 16.8 % (11.5-14.0); SEGMENTED NEUTROPHILS % (AUTO) 61.6 % (42-78); WHITE BLOOD COUNT 7.8 10^3/uL (4.0-10.5)
[2017-07-11 13:25] LABS: ALANINE AMINOTRANSFERASE 34 U/L (9-52); ALBUMIN 4.2 g/dL (3.5-5.0); ALKALINE PHOSPHATASE 161 U/L (38-126); ANION GAP 13 (5-19); ASPARTATE AMINO TRANSFERASE 23 U/L (14-36); BILIRUBIN,DIRECT 0.1 mg/dL (0.0-0.4); BILIRUBIN,TOTAL 0.6 mg/dL (0.2-1.3); BLOOD UREA NITROGEN 21 mg/dL (7-20); CALCIUM 10.1 mg/dL (8.4-10.2); CARBON DIOXIDE 30 mmol/L (22-30); CHLORIDE 104 mmol/L (98-107); CREATINE KINASE 156 U/L (30-135); CREATININE RESULT 1.57 mg/dL (0.52-1.25); GLUCOSE 118 mg/dL (75-110); POTASSIUM 3.6 mmol/L (3.6-5.0); SODIUM 147.3 mmol/L (137-145); TOTAL PROTEIN 7.6 g/dL (6.3-8.2)
[2017-07-11 13:39] LABS: CREATINE KINASE MB 1.42 ng/mL (<4.55); TROPONIN I 0.013 ng/mL
[2017-07-11] MEDS ORDERED: ONDANSETRON HCL INJ/PF 4 MG/2 ML SDV ONE (13:39)
[2017-07-11] MEDS ORDERED: DILTIAZEM HCL/D5W 125 MG/125 ML RTUINJ IV ONE (13:40)
[2017-07-11] MEDS: DILTIAZEM HCL/D5W 125 MG/125 ML RTUINJ IV PRN ×2 (13:50→14:45)
[2017-07-11] MEDS ORDERED: ONDANSETRON 4 MG TAB.RAPDIS PO PRN (14:11)
[2017-07-11] MEDS ORDERED: ACETAMINOPHEN 325 MG TABLET PO PRN (14:11)
[2017-07-11] MEDS ORDERED: INSULIN LISPRO 100 UNIT/ML 3 ML VIAL SUBCUT PRN (14:20)
[2017-07-11] MEDS ORDERED: GLUCAGON,HUMAN RECOMB 1 MG INJ IM PRN (14:20)
[2017-07-11] MEDS ORDERED: DEXTROSE 40% GEL 15 GM TUBE PO PRN ×2 (14:20)
[2017-07-11] MEDS ORDERED: DEXTROSE 50%-WATER 25 GM/50 ML DISP.SYRIN IV PRN ×2 (14:20)
--- NOTE | 2017-07-11 15:52 | PDOC H&P ---
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 She was found to have a blood pressure of 250/150 and was sent to the emergency room. While in the emergency room the patient was given hydralazine 20 mg IV the patient developed nausea and then had atrial fib relation with rapid ventricular rate. Her blood pressure had decreased significantly. Since that time the patient reports that she is feeling much better although she is still tachycardic her heart rate has decreased somewhat. She denies having any chest pain. She denies any palpitations. Denies any orthopnea or PND. She does have chronic renal failure and orthopnea or PND associated with this. She also reports that she has had intermittent atrial fibrillation and has been on anticoagulation since her CVA earlier this year. The patient denies any wwby-zzy-apbatdm sinus medications. She reports she has been compliant with her medications. Past Medical History Cardiac Medical History: Reports: Atrial Fibrillation, Hyperlipidema, Hypertension Neurological Medical History: Reports: Ischemic CVA Endocrine Medical History: Reports: Diabetes Mellitus Type 2, Hypothyroidism Renal/ Medical History: Reports: Chronic Kidney Disease Malignancy Medical History: Reports: None GI Medical History: Reports: None Musculoskeltal Medical History: Reports: None Skin Medical History: Reports: None Psychiatric Medical History: Reports: None Traumatic Medical History: Reports: None Hematology: Reports: None Infectious Medical History: Reports: None Past Surgical History Past Surgical History: Reports: Other - Uncertain at this point in time. Social History Information Source: Patient Lives with: Family Smoking Status: Never Smoker Frequency of Alcohol Use: None Hx Recreational Drug Use: No Drugs: None Hx Prescription Drug Abuse: No - Advance Directive Resuscitation Status: Full Code Surrogate healthcare decision maker:: Her son has power of personal injury attorney. Family History Family History: Mother at age 78 with a CVA. Father in his 60s from CVA. Parental Family History Reviewed: Yes Children Family History Reviewed: No Sibling(s) Family History Reviewed.: No Medication/Allergy Home Medications: Albuterol Sulfate [Ventolin Hfa] 2 puff IH Q6H PRN 07/11/17 Apixaban [Eliquis 5 mg Tablet] 5 mg PO BID 07/11/17 Atorvastatin Calcium [Lipitor 40 mg Tablet] 40 mg PO DAILY 07/11/17 Buspirone HCl [Buspar 15 mg Tablet] 15 mg PO DAILY 07/11/17 Glipizide [Glipizide Xl] 5 mg PO BID 07/11/17 Linagliptin [Tradjenta] 5 mg PO DAILY 07/11/17 Allergies/Adverse Reactions: codeine Allergy (Unverified 08/15/16 13:42) Penicillins Allergy (Unverified 08/15/16 13:41) phenobarbital Allergy (Unverified 08/15/16 13:43) Review of Systems Constitutional: ABSENT: chills, fever(s), headache(s), weight gain, weight loss Eyes: ABSENT: visual disturbances Ears: ABSENT: hearing changes Cardiovascular: PRESENT: palpitations. ABSENT: chest pain, dyspnea on exertion , edema, orthropnea Respiratory: ABSENT: cough, dyspnea, hemoptysis, sputum Gastrointestinal: ABSENT: abdominal pain, constipation, diarrhea, hematemesis, hematochezia, nausea, vomiting Genitourinary: ABSENT: dysuria, hematuria Musculoskeletal: ABSENT: joint swelling Integumentary: ABSENT: rash, wounds Neurological: PRESENT: weakness Psychiatric: ABSENT: anxiety, depression Endocrine: ABSENT: cold intolerance, heat intolerance, polydipsia, polyuria Hematologic/Lymphatic: ABSENT: easy bleeding, easy bruising Physical Exam Vital Signs: Temp Pulse Resp BP Pulse Ox 24 H 148/86 H 99 07/11/17 14:32 07/11/17 14:32 07/11/17 14:32 Intake & Output 07/10/17 07/11/17 07/12/17 06:59 06:59 06:59 Weight 69.7 kg General appearance: PRESENT: no acute distress, well-developed, well-nourished Head exam: PRESENT: atraumatic, normocephalic Eye exam: PRESENT: conjunctiva pink, EOMI, PERRLA. ABSENT: scleral icterus Ear exam: PRESENT: normal external ear exam Mouth exam: PRESENT: moist, tongue midline Neck exam: ABSENT: carotid bruit, JVD, lymphadenopathy, thyromegaly Respiratory exam: PRESENT: clear to auscultation emily. ABSENT: rales, rhonchi, wheezes Cardiovascular exam: PRESENT: irregular rhythm, tachycardia. ABSENT: diastolic murmur, rubs, systolic murmur Vascular exam: PRESENT: normal capillary refill GI/Abdominal exam: PRESENT: normal bowel sounds, soft. ABSENT: distended, guarding, mass, organolmegaly, rebound, tenderness Rectal exam: PRESENT: deferred Extremities exam: ABSENT: calf tenderness, clubbing, pedal edema Neurological exam: PRESENT: alert, awake, oriented to person, oriented to place , oriented to situation, CN II-XII grossly intact. ABSENT: oriented to time, motor sensory deficit Psychiatric exam: PRESENT: appropriate affect Skin exam: PRESENT: dry, intact, warm. ABSENT: cyanosis, rash Assessment & Plan - Diagnosis (1) Hypertensive emergency Is this a current diagnosis for this admission?: Yes Plan: The patient initially presented with hypertensive urgency with a blood pressure of 250/150. This resolved with hydralazine however she then developed atrial fibrillation. Will continue the diltiazem drip for atrial fibrillation and this hopefully also take care of her blood pressure. Will check serial cardiac enzymes to make certain she has not had an acute cardiac event although my suspicion is low. (2) Atrial fibrillation with RVR Is this a current diagnosis for this admission?: Yes Plan: Patient has history of H fibrillation. Will continue with the diltiazem drip. (3) CKD (chronic kidney disease), stage III Is this a current diagnosis for this admission?: Yes Plan: Patient has stage III chronic renal failure. She appears to be euvolemic at this time. (4) Diabetes Qualifiers: Diabetes mellitus type: type 2 Diabetes mellitus complication status: with unspecified complications Diabetes mellitus terminal manager insulin use: without nursing home use Qualified Code(s): E11.8 - Type 2 diabetes mellitus with unspecified complications Is this a current diagnosis for this admission?: Yes Plan: We will cover with sliding scale insulin. (5) Dyslipidemia Is this a current diagnosis for this admission?: Yes (6) Hypothyroidism Qualifiers: Hypothyroidism type: unspecified Qualified Code(s): E03.9 - Hypothyroidism , unspecified Is this a current diagnosis for this admission?: Yes Plan: Continue with Synthroid. - Time Time Spent: 50 to 70 Minutes - Inpatient Certification Medical Necessity: Need Close Monitoring Due to Risk of Patient Decompensation
[2017-07-11] MEDS ORDERED: ALBUTEROL SULFATE HFA (90 MCG/PUFF) 200 PUFF/8.5 GM MDI IH PRN (16:00)
[2017-07-11] MEDS: APIXABAN 5 MG TABLET PO SCH (17:12)
[2017-07-11] MEDS ORDERED: DIGOXIN INJ 0.5 MG/2 ML AMPULE IV ONE (17:15)
[2017-07-11] MEDS: NORMAL SALINE 1000 ML 1,000 ML IV PRN (17:18)
[2017-07-11 19:20] LABS: CREATINE KINASE MB 1.25 ng/mL (<4.55); TROPONIN I 0.022 ng/mL
[2017-07-11] MEDS ORDERED: FAMOTIDINE 20 MG TABLET PO SCH (22:00)
[2017-07-12 01:23] LABS: CREATINE KINASE MB 1.15 ng/mL (<4.55); TROPONIN I 0.058 ng/mL
[2017-07-12] MEDS: NORMAL SALINE 1000 ML 1,000 ML IV PRN (03:12)
[2017-07-12 07:37] LABS: WHITE BLOOD COUNT 7.9 10^3/uL (4.0-10.5)
[2017-07-12 07:38] LABS: ABSOLUTE BASOPHILS # (AUTO) 0.1 10^3/uL (0.0-0.2); ABSOLUTE EOSINOPHILS # (AUTO) 0.2 10^3/uL (0.0-0.6); ABSOLUTE MONOCYTES (AUTO) 0.5 10^3/uL (0.1-1.4); ABSOLUTE NEUT (AUTO) 5.3 10^3/uL (1.7-8.2); BASOPHILS % (AUTO) 0.9 % (0-2); HEMATOCRIT 36.6 % (36.0-47.0); HEMOGLOBIN 12.1 g/dL (12.0-15.5); HGB HCT DIFFERENCE -0.3; LYMPHOCYTES % (AUTO) 24.9 % (13-45); MEAN CORPUSCULAR HGB CONC 33.2 g/dL (32.0-36.0); MEAN CORPUSCULAR VOLUME 81 fl (80-97); MONOCYTES % (AUTO) 5.8 % (3-13); RED CELL DISTRIBUTION WIDTH 17.1 % (11.5-14.0); SEGMENTED NEUTROPHILS % (AUTO) 66.4 % (42-78)
[2017-07-12 07:51] LABS: ANION GAP 13 (5-19); BLOOD UREA NITROGEN 17 mg/dL (7-20); CALCIUM 9.4 mg/dL (8.4-10.2); CARBON DIOXIDE 24 mmol/L (22-30); CHLORIDE 108 mmol/L (98-107); CREATINE KINASE 142 U/L (30-135); CREATININE RESULT 1.44 mg/dL (0.52-1.25); GLUCOSE 114 mg/dL (75-110); MAGNESIUM 1.9 mg/dL (1.6-2.3); POTASSIUM 3.5 mmol/L (3.6-5.0); SODIUM 144.6 mmol/L (137-145)
[2017-07-12 08:02] LABS: CREATINE KINASE MB 1.47 ng/mL (<4.55); TROPONIN I 0.062 ng/mL
--- NOTE | 2017-07-12 08:58 | PDOC DISCHARGE SUMMARY ---
General - Admit/Disc Date/PCP Admission Date/Primary Care Provider: 07/11/17 14:06 WISAM NELSON MD Discharge Date: 07/12/17 - Discharge Diagnosis (1) Hypertensive emergency Is this a current diagnosis for this admission?: Yes (2) Atrial fibrillation with RVR Is this a current diagnosis for this admission?: Yes Summary: Initially treated with a diltiazem drip. Patient is being converted over to p.o. diltiazem. (3) CKD (chronic kidney disease), stage III Is this a current diagnosis for this admission?: Yes (4) Diabetes Is this a current diagnosis for this admission?: Yes (5) Dyslipidemia Is this a current diagnosis for this admission?: Yes (6) Hypothyroidism Is this a current diagnosis for this admission?: Yes - Additional Information Resuscitation Status: Full Code Discharge Diet: Cardiac, Diabetic Discharge Activity: Activity As Tolerated Prescriptions: Diltiazem HCl [Cardizem Cd 120 mg Capsule] 120 mg PO DAILY #30 cap.sr.24h Home Medications: Albuterol Sulfate [Ventolin Hfa] 2 puff IH Q6H PRN 07/11/17 Apixaban [Eliquis 5 mg Tablet] 5 mg PO BID 07/11/17 Atorvastatin Calcium [Lipitor 40 mg Tablet] 40 mg PO DAILY 07/11/17 Buspirone HCl [Buspar 15 mg Tablet] 15 mg PO DAILY 07/11/17 Glipizide [Glipizide Xl] 5 mg PO BID 07/11/17 Linagliptin [Tradjenta] 5 mg PO DAILY 07/11/17 Diltiazem HCl [Cardizem Cd 120 mg Capsule] 120 mg PO DAILY #30 cap.sr.24h History of Present Illness History of Present Illness: GONZALO WEAVER is a 82 year old female who has a history of chronic renal failure and atrial fibrillation who 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 She was found to have a blood pressure of 250/150 and was sent to the emergency room. While in the emergency room the patient was given hydralazine 20 mg IV the patient developed nausea and then had atrial fib relation with rapid ventricular rate. Her blood pressure had decreased significantly. Since that time the patient reports that she is feeling much better although she is still tachycardic her heart rate has decreased somewhat. She denies having any chest pain. She denies any palpitations. Denies any orthopnea or PND. She does have chronic renal failure and orthopnea or PND associated with this. She also reports that she has had intermittent atrial fibrillation and has been on anticoagulation since her CVA earlier this year. The patient denies any obwe-[id number] sinus medications. She reports she has been compliant with her medications. Hospital Course Hospital Course: 82-year-old female who presented to her mobile heavy equipment mechanic office today and was noted to be very hypertensive with a blood pressure of 250/120. The patient presented to emergency room with a blood pressure that was elevated. She was given IV hydralazine and had decrease in blood pressure but then developed A. fib with rapid ventricular rate. The patient was started on diltiazem drip and was admitted for further treatment. The patient had control of her heart rate with the diltiazem after addition of IV digoxin 1. Overnight the patient's heart rate decreased and her diltiazem drip was stopped. Her blood pressure has remained in the normal range. She is being started on oral diltiazem today and she will be discharged home. Her other medical problems all were stable. She had unremarkable cardiac enzymes. Physical Exam Vital Signs: Temp Pulse Resp BP Pulse Ox 98.6 F 75 18 171/83 H 96 07/12/17 07:19 07/12/17 07:19 07/12/17 07:19 07/12/17 07:19 07/12/17 07:19 Intake & Output 07/11/17 07/12/17 07/13/17 06:59 06:59 06:59 Intake Total 4072 Output Total 1900 Balance 2172 Weight 66.1 kg General appearance: PRESENT: no acute distress Eye exam: PRESENT: conjunctiva pink. ABSENT: scleral icterus Mouth exam: PRESENT: moist, tongue midline Neck exam: ABSENT: JVD Respiratory exam: PRESENT: clear to auscultation emily. ABSENT: rales, rhonchi, wheezes Cardiovascular exam: PRESENT: irregular rhythm. ABSENT: diastolic murmur, rubs , systolic murmur GI/Abdominal exam: PRESENT: normal bowel sounds, soft. ABSENT: distended, guarding, mass, organolmegaly, rebound, tenderness Extremities exam: ABSENT: calf tenderness, clubbing, pedal edema Neurological exam: PRESENT: awake, oriented to person, oriented to place. ABSENT: oriented to time, oriented to situation Psychiatric exam: PRESENT: appropriate affect Skin exam: PRESENT: dry, intact, warm. ABSENT: cyanosis, rash Results Laboratory Results: 07/12/17 06:45 07/12/17 06:45 07/12/17 07/12/17 06:45 06:45 WBC 7.9 RBC 4.50 Hgb 12.1 Hct 36.6 MCV 81 MCH 27.0 MCHC 33.2 RDW 17.1 H Plt Count 374 Seg Neutrophils % 66.4 Lymphocytes % 24.9 Monocytes % 5.8 Eosinophils % 2.0 Basophils % 0.9 Absolute Neutrophils 5.3 Absolute Lymphocytes 2.0 Absolute Monocytes 0.5 Absolute Eosinophils 0.2 Absolute Basophils 0.1 Sodium 144.6 Potassium 3.5 L Chloride 108 H Carbon Dioxide 24 Anion Gap 13 BUN 17 Creatinine 1.44 H Est GFR ( Amer) 42 L Est GFR (Non-Af Amer) 35 L Glucose 114 H Calcium 9.4 Magnesium 1.9 07/11/17 07/11/17 07/12/17 18:44 18:44 00:43 Creatine Kinase 132 128 CK-MB (CK-2) 1.25 Troponin I 0.022 07/12/17 07/12/17 07/12/17 00:43 06:45 06:45 Creatine Kinase 142 H CK-MB (CK-2) 1.15 1.47 Troponin I 0.058 0.062 Qualifiers PATEINT BEING DISCHARGED WITH ANY OF THE FOLLOWING DIAGNOSIS?: No Plan Discharge Plan: Patient is discharged home in stable condition. Follow-up with primary care in 2 weeks. Time Spent: Less than 30 Minutes
[2017-07-12] MEDS: APIXABAN 5 MG TABLET PO SCH (09:46)
[2017-07-12] MEDS ORDERED: DILTIAZEM HCL 120 MG CAP.SR.24H PO SCH (10:00)
[2017-07-12] MEDS ORDERED: (PENDING PHARMACY ID) (Linagliptin [Tradjenta] 5 MG) PO SCH (10:00)
[2017-07-12] MEDS ORDERED: BUSPIRONE HCL 10 MG TABLET PO SCH (10:00)
[2017-07-12] MEDS ORDERED: ATORVASTATIN CALCIUM 40 MG TABLET PO SCH (10:00)
[2017-07-12] MEDS ORDERED: SITAGLIPTIN PHOSPHATE 50 MG TABLET PO SCH (10:00)
[2017-07-12 11:40] VITALS: BP 143/95
== END 2017-07-12 12:22 | disposition home or self-care (01) | DRG 305 ==
LOC: ER 12:30 → EH 14:06 → 3S 16:22
PROVIDERS: ADMIT Internal Medicine; ATTEND Internal Medicine
DX: I16.1 Hypertensive emergency (principal); I48.91 Unspecified atrial fibrillation; I12.9 Hypertensive chronic kidney disease with stage 1 through stage 4 chronic kidney disease, or unspecified chronic kidney disease; N18.3 Chronic kidney disease, stage 3 (moderate); E11.22 Type 2 diabetes mellitus with diabetic chronic kidney disease; E78.5 Hyperlipidemia, unspecified; E03.9 Hypothyroidism, unspecified; Z79.899 Other long term (current) drug therapy; Z79.01 Long term (current) use of anticoagulants; Z86.73 Personal history of transient ischemic attack (TIA), and cerebral infarction without residual deficits; Z82.3 Family history of stroke; Z88.6 Allergy status to analgesic agent; Z88.0 Allergy status to penicillin; Z88.8 Allergy status to other drugs, medicaments and biological substances
CPT/HCPCS: 36415; 80048; 80053; 82550; 82553; 82962; 83735; 84484; 85025; 96365; 96375; 99291; J0360; J1160; J3490; J7030

== ENCOUNTER → 2020-03-14 | Outpatient (CLI) | payer BC ==
--- NOTE | 2020-03-15 10:57 | RADIOLOGY REPORT (SQ) ---
EXAM DESCRIPTION: CT SOFT TISSUE NECK WITHOUT IMAGES COMPLETED DATE/TIME: 03/14/2020 1:52 pm REASON FOR STUDY: RIGHT PAROTID MASS (K11.8) K11.8 OTHER DISEASES OF SALIVARY GLANDS COMPARISON: None. TECHNIQUE: Noncontrast scanning from skull base through lung apices with review of bone, soft tissue and lung windows. Reconstructed coronal and sagittal MPR images reviewed. All images stored on PAC S. All CT scanners at this facility use dose modulation, iterative reconstruction, and/or weight based d osing when appropriate to reduce radiation dose to as low as reasonably achievable (ALARA). [facility]: Dose Right [facility]: CareDose [facility]: Dose Right [facility]: Teradose 4D [facility]: [email or web address] RADIATION DOSE: CT Rad equipment meets quality standard of care and radiation dose reduction techniq ues were employed. CTDIvol: 14.1 mGy. DLP: 460 mGy-cm. mGy. LIMITATIONS: None. FINDINGS: SKULL BASE: Intact. MAJOR SALIVARY GLANDS: No solid or cystic masses. No inflammatory changes. LYMPHADENOPATHY: No adenopathy. MUCOSAL MASSES OR ASYMMETRY: No mucosal masses or asymmetry. LARYNX/CORDS: No abnormal findings. LUNG APICES: Clear. BONES: Intact. Degenerative changes in the spine. THYROID: Normal size. No masses. PARANASAL SINUSES: Clear. OTHER: No other significant finding. IMPRESSION: NO SIGNIFICANT FINDING IN THE SOFT TISSUES OF THE NECK. TECHNICAL DOCUMENTATION: JOB ID: [id number] Quality ID # [id number]: Final reports with documentation of one or more dose reduction techniques (e.g., Au tomated exposure control, adjustment of the mA and/or kV according to patient size, use of iterative reconstruction technique) 2010 [employer]- All Rights Reserved Reading location - IP/workstation name: [email or web address]
== END ==
LOC: RAD 13:08
PROVIDERS: ATTEND Clinical Nurse Specialist Adult Health
DX: K11.8 Other diseases of salivary glands (principal)
CPT/HCPCS: 70490; 82565

== ENCOUNTER 2020-06-15 12:29 | Emergency (ER) | payer BC ==
[2020-06-15 13:21] LABS: ABSOLUTE BASOPHILS # (AUTO) 0.1 10^3/uL (0.0-0.2); ABSOLUTE EOSINOPHILS # (AUTO) 0.1 10^3/uL (0.0-0.6); ABSOLUTE LYMPHOCYTES (AUTO) 1.4 10^3/uL (0.5-4.7); ABSOLUTE MONOCYTES (AUTO) 0.6 10^3/uL (0.1-1.4); BASOPHILS % (AUTO) 1.2 % (0-2); EOSINOPHILS % (AUTO) 1.9 % (0-6); HEMATOCRIT 26.5 % (36.0-47.0); HEMOGLOBIN 8.8 g/dL (12.0-15.5); LYMPHOCYTES % (AUTO) 22.1 % (13-45); MEAN CORPUSCULAR HEMOGLOBIN 21.9 pg (27.0-33.4); MEAN CORPUSCULAR VOLUME 66 fl (80-97); MONOCYTES % (AUTO) 9.9 % (3-13); PLATELET COUNT 399 10^3/uL (150-450); RED CELL DISTRIBUTION WIDTH 20.4 % (11.5-14.0); SEGMENTED NEUTROPHILS % (AUTO) 64.9 % (42-78); TOTAL CELLS COUNTED % (AUTO) 100 %; WHITE BLOOD COUNT 6.2 10^3/uL (4.0-10.5)
--- NOTE | 2020-06-15 13:22 | RADIOLOGY REPORT (SQ) ---
EXAM DESCRIPTION: CHEST SINGLE VIEW IMAGES COMPLETED DATE/TIME: 06/15/2020 1:14 pm REASON FOR STUDY: shortness of breath COMPARISON: 12/30/2015 EXAM PARAMETERS: NUMBER OF VIEWS: One view. TECHNIQUE: Single frontal radiographic view of the chest acquired. RADIATION DOSE: NA LIMITATIONS: None. FINDINGS: LUNGS AND PLEURA: No opacities, masses or pneumothorax. No pleural effusion. MEDIASTINUM AND HILAR STRUCTURES: No masses. Contour normal. HEART AND VASCULAR STRUCTURES: Enlarged cardiac silhouette, stable. No overt edema. BONES: No acute findings. HARDWARE: None in the chest. OTHER: No other significant finding. IMPRESSION: Stable enlarged cardiac silhouette without overt edema. TECHNICAL DOCUMENTATION: JOB ID: [id number] 2010 [employer]- All Rights Reserved Reading location - IP/workstation name: [email or web address]
[2020-06-15 13:33] LABS: ALBUMIN 4.2 g/dL (3.5-5.0); ALKALINE PHOSPHATASE 144 U/L (38-126); ANION GAP 14 (5-19); ASPARTATE AMINO TRANSFERASE 19 U/L (14-36); BILIRUBIN,DIRECT 0.2 mg/dL (0.0-0.4); BILIRUBIN,TOTAL 0.4 mg/dL (0.2-1.3); BLOOD UREA NITROGEN 47 mg/dL (7-20); CALCIUM 9.7 mg/dL (8.4-10.2); CARBON DIOXIDE 25 mmol/L (22-30); CHLORIDE 102 mmol/L (98-107); GLUCOSE 163 mg/dL (75-110); POTASSIUM 3.2 mmol/L (3.6-5.0); TOTAL PROTEIN 7.6 g/dL (6.3-8.2)
[2020-06-15 15:23] VITALS: BP 136/60
[2020-06-15 15:39] LABS: APPEARANCE,URINE SLIGHTLY-CLOUDY; BILIRUBIN,URINE NEGATIVE (NEGATIVE); COLOR,URINE YELLOW; GLUCOSE, URINE NEGATIVE (NEGATIVE); KETONES,URINE NEGATIVE (NEGATIVE); LEUKOCYTE ESTERASE,URINE LARGE (NEGATIVE); NITRITE,URINE NEGATIVE (NEGATIVE); PROTEIN,URINE 100 mg/dL (NEGATIVE); URINE SPECIFIC GRAVITY 1.012; UROBILINOGEN,URINE NEGATIVE mg/dL (<2.0)
[2020-06-15] MEDS ORDERED: POTASSIUM CHLORIDE 20 MEQ PACKET PO ONE (16:33)
--- NOTE | 2020-06-15 16:42 | ER Document Report ---
ED General - General Chief Complaint: Shortness Of Breath Stated Complaint: SHORTNESS OF BREATH Time Seen by Provider: 06/15/20 16:03 TRAVEL OUTSIDE OF THE [place] IN LAST 30 DAYS: No - HPI Notes: Chief complaint: Shortness of breath History of present illness: 85-year-old female sent here via EMS from [facility] for evaluation of transient dyspnea earlier today. Patient says her breathing is "just fine" at this time. She denies chest pain. She says she has had a slight cough but denies sputum production or fever. Patient has had a previous stroke. She has a history of progressively worsening chronic kidney disease. Eating and drinking normally. No vomiting. No diarrhea. Son advises that since she had her stroke her kidney function has been progressively deteriorating. She has never been on dialysis. She is a non- smoker. She has had no discrete exposure to Covid that we are aware of. She is on Eliquis. We attempted to contact patient's primary provider to get her baseline creatinine values. We were not able to reach anyone with access to this information. Family indicates that they have been told she has very advanced renal disease but up to now they have not wanted to do dialysis. Patient states that she still urinates 3 times daily. - Related Data Allergies/Adverse Reactions: codeine Allergy (Verified 06/15/20 13:11) Penicillins Allergy (Verified 06/15/20 13:11) phenobarbital Allergy (Verified 06/15/20 13:11) Past Medical History - General Information source: Patient, Relative, [facility] Records, Outside Facility Records - Social History Smoking Status: Never Smoker Chew tobacco use (# tins/day): No Drug Abuse: None Lives with: [facility] Family History: Reviewed & Not Pertinent Patient has homicidal ideation: No - Past Medical History Cardiac Medical History: Reports: Hx Atrial Fibrillation, Hx Hypercholes terolemia, Hx Hypertension Pulmonary Medical History: Reports: Hx COPD Endocrine Medical History: Reports: Hx Diabetes Mellitus Type 2, Hx Hypothyroid ism Renal/ Medical History: Reports: Hx End Stage Renal Disease. Denies: Hx Peritoneal Dialysis Past Surgical History: Reports: Other - Uncertain at this point in time. Review of Systems - Review of Systems Notes: Constitutional: Negative for fever. HENT: Negative for sore throat. Eyes: Negative for visual changes. Cardiovascular: Negative for chest pain. Respiratory: As per HPI. Gastrointestinal: Negative for abdominal pain, vomiting or diarrhea. Genitourinary: Negative for dysuria. Musculoskeletal: Negative for back pain. Skin: Negative for rash. Neurological: Negative for headaches, weakness or numbness. 10 point ROS negative except as marked above and in HPI. Physical Exam - Vital signs Vitals: Temp Resp BP Pulse Ox 98.4 F 16 168/76 H 100 06/15/20 12:52 06/15/20 12:52 06/15/20 12:52 06/15/20 12:52 - Notes Notes: GENERAL: Frail elderly female appearing in no acute distress. SKIN: Good turgor no rashes. HEAD: Normocephalic atraumatic. EYES: PERRLA. EOMI. Conjunctivae pale and sclerae clear. EARS: CANALS AND TMS CLEAR. NOSE: CLEAR. MOUTH: Moist mucosa. Good dentition. No stridor or edema. No drooling. NECK: Supple. No masses or thyromegaly. No adenopathy. Carotids 2+ without bruits. No JVD. BACK: Symmetrical without tenderness. CHEST: Respirations unlabored. Breath sounds clear and symmetrical. HEART: Regular rhythm. No murmur gallop or rub. ABDOMEN: Soft nontender without masses, organomegaly or rebound. Bowel sounds normally active. No bruits. GENITALIA: Deferred. EXTREMITIES: No edema. No calf tenderness. Cap refill less than 1.5 seconds. Dorsalis pedis and posterior tibial pulses 3+ and symmetrical. NEUROLOGICAL: GCS 15. Alert and oriented x3. Ambulatory with cane. Fluent speech. Cranial nerves II through XII intact. Sensorimotor and cerebellar normal. Normal tone. PSYCHIATRIC: Appropriate affect. Course - Re-evaluation Re-evalutation: 06/15/20 16:49 Patient has normal room air oxygenation. She did not desaturate when she got up to walk to the bathroom. She does not appear in any respiratory distress. Her chest is clear. She has chronic atrial fib but she is rate controlled. Her potassium is low at 3.2. Her creatinine is about 3.5 and this is progressively increased from prior values. Her CO2 is normal. I do not see any acute ST changes on her EKG her QT interval is prolonged consistent with hyperkalemia. We want a Covid test the patient. I would give her some oral potassium. She will need to have potassium rechecked by her primary care provider within the next 3 days and will remain on isolation at the facility until we know the results for Covid testing. Findings, clinical impression and plan of treatment have been discussed with patient/family. Understanding of current findings and recommendations has been acknowledged by them and there is agreement regarding disposition and follow-up. - Vital Signs Vital signs: Temp Pulse Resp BP Pulse Ox 98.6 F 20 136/60 H 99 06/15/20 15:01 06/15/20 15:01 06/15/20 15:01 06/15/20 15:01 - Laboratory Result Diagrams: 06/15/20 13:00 06/15/20 13:00 Laboratory results interpreted by me: 06/15/20 06/15/20 06/15/20 13:00 13:00 15:20 Hgb 8.8 L Hct 26.5 L MCV 66 L MCH 21.9 L RDW 20.4 H Potassium 3.2 L BUN 47 H Creatinine 3.54 H Est GFR ( Amer) 15 L Est GFR (MDRD) Non-Af 12 L Glucose 163 H Alkaline Phosphatase 144 H Urine Protein 100 H Ur Leukocyte Esterase LARGE H - Diagnostic Test Radiology reviewed: Image reviewed, Reports reviewed Radiology results interpreted by me: 06/15/20 16:48 Chest X-Ray 06/15/20 12:36 IMPRESSION: Stable enlarged cardiac silhouette without overt edema. Discharge - Discharge Clinical Impression: Hypokalemia, Chronic renal insufficiency Anemia in chronic renal disease Qualifiers: Chronic kidney disease stage: stage 4 (severe) Qualified Code(s): N18.4 - Chronic kidney disease, stage 4 (severe) Condition: Stable Disposition: SNF-Other Instructions: COVID-19 Guidance for Persons Under Investigation Additional Instructions: Continue all usual medications. Add potassium twice daily for the next 3 days. Your doctor should recheck your blood potassium level within the next 3 days. Return here as needed for new or worsening symptoms. See your physician within the next 3 days. Prescriptions: Potassium Chloride 10 meq PO BID 3 Days #6 tablet.er
--- NOTE | 2020-06-15 19:41 | EKG REPORT ---
SEVERITY:- ABNORMAL ECG - ATRIAL FIBRILLATION, V-RATE 61-98 LEFT ANTERIOR FASCICULAR BLOCK LVH WITH SECONDARY REPOLARIZATION ABNORMALITY PROLONGED QT INTERVAL : Confirmed by: Nilson Blair MD 15-Jun-2020 19:40:27
== END 2020-06-15 19:00 ==
LOC: ER 12:29
DX: I12.9 Hypertensive chronic kidney disease with stage 1 through stage 4 chronic kidney disease, or unspecified chronic kidney disease (principal); E11.22 Type 2 diabetes mellitus with diabetic chronic kidney disease; N18.9 Chronic kidney disease, unspecified; E87.6 Hypokalemia; T17.928A Food in respiratory tract, part unspecified causing other injury, initial encounter; R05 Cough; Z86.73 Personal history of transient ischemic attack (TIA), and cerebral infarction without residual deficits; Z88.8 Allergy status to other drugs, medicaments and biological substances; Z79.01 Long term (current) use of anticoagulants; I48.91 Unspecified atrial fibrillation; J44.9 Chronic obstructive pulmonary disease, unspecified
CPT/HCPCS: 93005; 99285; 36415; 85025; 0241U ×4; 80053; 81001; 71045; 93010; J3490; C9803

== ENCOUNTER 2020-06-19 09:07 | Emergency (ER) | payer BC ==
--- NOTE | 2020-06-19 10:40 | RADIOLOGY REPORT (SQ) ---
EXAM DESCRIPTION: CHEST SINGLE VIEW IMAGES COMPLETED DATE/TIME: 06/19/2020 10:22 am REASON FOR STUDY: cough COMPARISON: AP chest 06/15/2020 EXAM PARAMETERS: NUMBER OF VIEWS: One view. TECHNIQUE: Single frontal radiographic view of the chest acquired. RADIATION DOSE: NA LIMITATIONS: None. FINDINGS: LUNGS AND PLEURA: No opacities, masses or pneumothorax. No pleural effusion. MEDIASTINUM AND HILAR STRUCTURES: No masses. Contour normal. HEART AND VASCULAR STRUCTURES: Stable moderate cardiomegaly BONES: No acute findings. HARDWARE: None in the chest. OTHER: No other significant finding. IMPRESSION: Stable moderate cardiomegaly TECHNICAL DOCUMENTATION: JOB ID: [id number] 2010 [employer]- All Rights Reserved Reading location - IP/workstation name: [id number]
--- NOTE | 2020-06-19 10:48 | ER Document Report ---
ED General - General Chief Complaint: Choked/Choking Stated Complaint: CHOKING Time Seen by Provider: 06/19/20 10:07 TRAVEL OUTSIDE OF THE [place] IN LAST 30 DAYS: No - HPI Notes: Chief complaint: Choking episode" History of present illness: 85-year-old female sent here via EMS from [facility] for evaluation of cough after reportedly choking on some food while eating earlier today. Patient says her breathing is "just fine" at this time. She denies chest pain. She was transported here via EMS and they reported normal vital signs and a normal O2 saturation on room air. Patient has not exhibited any respiratory distress per EMS report. I had just seen the patient in the emergency department here 4 days ago. She came in at that time for evaluation for cough and her work-up was remarkable only for some chronic renal insufficiency which is baseline as well as mild hypokalemia. She had a chest x-ray at that time showing cardiomegaly with no other significant findings. She did not have a fever and her work-up was otherwise unremarkable. She was [facility] to the [facility] at that time. We have placed her on potassium for 3 days and had recommended a follow-up potassium level which has not yet been done so we will get this while she is here with us today. Family advises that since she had her stroke her kidney function has been progressively deteriorating. She has never been on dialysis. She is a non- smoker. She has had no discrete exposure to Covid that we are aware of. She is on Eliquis. . - Related Data Allergies/Adverse Reactions: codeine Allergy (Verified 06/15/20 13:11) Penicillins Allergy (Verified 06/15/20 13:11) phenobarbital Allergy (Verified 06/15/20 13:11) Past Medical History - General Information source: Patient, [facility] Records - Social History Smoking Status: Never Smoker Chew tobacco use (# tins/day): No Drug Abuse: None Family History: Reviewed & Not Pertinent Patient has homicidal ideation: No - Past Medical History Cardiac Medical History: Reports: Hx Atrial Fibrillation, Hx Hypercholesterolemia, Hx Hypertension Pulmonary Medical History: Reports: Hx COPD Endocrine Medical History: Reports: Hx Diabetes Mellitus Type 2, Hx Hypothyroidism Renal/ Medical History: Reports: Hx End Stage Renal Disease. Denies: Hx Peritoneal Dialysis Past Surgical History: Reports: Other - Uncertain at this point in time. Review of Systems - Review of Systems Notes: Constitutional: Negative for fever. HENT: Negative for sore throat. Eyes: Negative for visual changes. Cardiovascular: Negative for chest pain. Respiratory: As per HPI. Gastrointestinal: Negative for abdominal pain, vomiting or diarrhea. Genitourinary: Negative for dysuria. Musculoskeletal: Negative for back pain. Skin: Negative for rash. Neurological: Negative for headaches, weakness or numbness. 10 point ROS negative except as marked above and in HPI. Physical Exam - Vital signs Vitals: Temp Pulse Resp BP Pulse Ox 97.7 F 70 18 117/62 100 06/19/20 09:23 06/19/20 09:23 06/19/20 09:23 06/19/20 09:23 06/19/20 09:23 - Notes Notes: GENERAL: Elderly female appearing in no acute distress. SKIN: Good turgor no rashes. HEAD: Normocephalic atraumatic. EYES: PERRLA. EOMI. Conjunctivae and sclerae clear. EARS: CANALS AND TMS CLEAR. NOSE: CLEAR. MOUTH: Moist mucosa. Good dentition. No stridor or edema. No drooling. NECK: Supple. No masses or thyromegaly. No adenopathy. Carotids 2+ without bruits. No JVD. BACK: Symmetrical without tenderness. CHEST: Respirations unlabored. Breath sounds clear and symmetrical. HEART: Regular rhythm. No murmur gallop or rub. ABDOMEN: Soft nontender without masses, organomegaly or rebound. Bowel sounds normally active. No bruits. GENITALIA: Deferred. EXTREMITIES: No edema. No calf tenderness. Cap refill less than 1.5 seconds. Dorsalis pedis and posterior tibial pulses 3+ and symmetrical. NEUROLOGICAL: GCS 15. Alert and oriented x3. Fluent speech. Cranial nerves II through XII intact. Sensorimotor and cerebellar normal. Normal tone. PSYCHIATRIC: Appropriate affect. Course - Re-evaluation Re-evalutation: 06/19/20 13:20 This lady is in no respiratory distress her lungs are clear. Her chest x-ray shows no infiltrates. Her room air pulse oximetry is normal. I reviewed her records and she had hypokalemia on her last visit here. Potassium was repeated today and potassium was previously 3.2 and has gone up to 3.4. She is on third day of potassium replacement not only written for 3 days previously. Her creatinine is actually improved from baseline is about 3.14 today. I will give her another 3 days worth of potassium and send her back to the extended care facility. - Vital Signs Vital signs: Temp Pulse Resp BP Pulse Ox 97.7 F 70 18 117/62 100 06/19/20 09:23 06/19/20 09:23 06/19/20 09:23 06/19/20 09:23 06/19/20 09:23 - Laboratory Result Diagrams: 06/19/20 11:15 06/19/20 11:15 Laboratory results interpreted by me: 06/19/20 06/19/20 11:15 11:15 Hgb 9.1 L Hct 28.8 L MCV 66 L MCH 20.9 L MCHC 31.5 L RDW 20.7 H Potassium 3.4 L BUN 41 H Creatinine 3.46 H Est GFR ( Amer) 15 L Est GFR (MDRD) Non-Af 13 L Glucose 160 H - Diagnostic Test Radiology reviewed: Image reviewed, Reports reviewed Radiology results interpreted by me: 06/19/20 10:48 Chest X-Ray 06/19/20 10:11 IMPRESSION: Stable moderate cardiomegaly Discharge - Discharge Clinical Impression: Hypokalemia, Chronic kidney disease Condition: Stable Disposition: [facility] Additional Instructions: Return here as needed for new or worsening symptoms. Continue usual medications. And an additional 3-day course of oral potassium and prescription has been written for this. Serum potassium level needs to be rechecked within the next 3 to 5 days. Prescriptions: Potassium Chloride 10 meq PO BID 3 Days #6 tablet.er
[2020-06-19 11:35] LABS: ABSOLUTE LYMPHOCYTES (AUTO) 0.9 10^3/uL (0.5-4.7); ABSOLUTE MONOCYTES (AUTO) 0.4 10^3/uL (0.1-1.4); ABSOLUTE NEUT (AUTO) 4.3 10^3/uL (1.7-8.2); BASOPHILS % (AUTO) 0.5 % (0-2); EOSINOPHILS % (AUTO) 0.6 % (0-6); HEMATOCRIT 28.8 % (36.0-47.0); HEMOGLOBIN 9.1 g/dL (12.0-15.5); LYMPHOCYTES % (AUTO) 15.9 % (13-45); MEAN CORPUSCULAR HEMOGLOBIN 20.9 pg (27.0-33.4); MEAN CORPUSCULAR HGB CONC 31.5 g/dL (32.0-36.0); MEAN CORPUSCULAR VOLUME 66 fl (80-97); MONOCYTES % (AUTO) 7.1 % (3-13); PLATELET COUNT 383 10^3/uL (150-450); RED BLOOD COUNT 4.34 10^6/uL (3.72-5.28); RED CELL DISTRIBUTION WIDTH 20.7 % (11.5-14.0); SEGMENTED NEUTROPHILS % (AUTO) 75.9 % (42-78); TOTAL CELLS COUNTED % (AUTO) 100 %; WHITE BLOOD COUNT 5.7 10^3/uL (4.0-10.5)
[2020-06-19 11:50] LABS: ANION GAP 13 (5-19); BLOOD UREA NITROGEN 41 mg/dL (7-20); CALCIUM 9.5 mg/dL (8.4-10.2); CARBON DIOXIDE 23 mmol/L (22-30); CHLORIDE 103 mmol/L (98-107); GLUCOSE 160 mg/dL (75-110); POTASSIUM 3.4 mmol/L (3.6-5.0)
[2020-06-19] MEDS ORDERED: POTASSIUM CHLORIDE 20 MEQ PACKET PO ONE (12:28)
[2020-06-19 17:20] VITALS: BP 120/72
== END 2020-06-19 17:20 ==
LOC: ER 09:07
DX: E87.6 Hypokalemia (principal); E11.22 Type 2 diabetes mellitus with diabetic chronic kidney disease; I12.0 Hypertensive chronic kidney disease with stage 5 chronic kidney disease or end stage renal disease; N18.6 End stage renal disease; I48.91 Unspecified atrial fibrillation; E78.00 Pure hypercholesterolemia, unspecified; Z88.0 Allergy status to penicillin; Z88.6 Allergy status to analgesic agent; Z79.01 Long term (current) use of anticoagulants
CPT/HCPCS: 99284; 36415; 85025; 80048; 71045; J3490